=== PATIENT | male | born 1940 | race Caucasian/White ===

== ENCOUNTER 2019-10-02 22:07 | Inpatient (IN) | payer OTHER ==
[~2019-10-02] VITALS: Ht 162.6 cm; Wt 198.9 kg
[2019-10-02 23:15] LABS: Basophils # (auto) 0 10 ^3/uL (0-0.2); Basophils % (auto) 0.3 % (0.0-2.0); Eosinophils # (auto) 0 10 ^3/uL (0-0.8); White Blood Cell 9.5 10^3/uL (4.4-10.8)
[2019-10-02 23:18] LABS: Hemoglobin 16.5 g/dL (13.5-17.5); Lymphocytes # (auto) 0.5 10 ^3/uL (0.4-5.4); Lymphocytes % (auto) 5.5 % (10.0-50.0); Mean Corpuscular Hemoglobin 26.4 pg (28.0-32.0); Mean Corpuscular Hgb Conc. 31.1 g/dL (32.0-36.0); Mean Corpuscular Volume 84.9 fL (80.0-100.0); Monocytes % (auto) 10.6 % (0.0-12.0); Neutrophils % (auto) 83.6 % (37.0-80.0); Nucleated Red Blood Cells % 0.3 %; Platelet Count (auto) 238 10^3/uL (140-450); Red Blood Cells 6.25 10^6/uL (4.5-5.90); Red Cell Distribution Width 18.2 % (11.8-14.3)
[2019-10-02 23:38] LABS: Calcium 8.5 mg/dL (8.5-10.1); Magnesium 2.6 mg/dL (1.6-2.6)
[2019-10-02 23:42] LABS: Lactic Acid w/Reflex 4.9 mmol/L (0.4-2.0)
[2019-10-02] MEDS ORDERED: SODIUM BICARBONATE 8.4 % INJ 50ML VIAL IV ONE (23:45)
[2019-10-02] MEDS ORDERED: DEXTROSE (50%) 50ML SYRG IV ONE (23:45)
[2019-10-02] MEDS ORDERED: levoFLOXacin 750MG 150 ML IV ONE (23:45)
[2019-10-02] MEDS ORDERED: cefTRIAXone 1GM/50ML D5W 50 ML IV ONE (23:45)
[2019-10-02] MEDS ORDERED: InsuLIN REG 1unit/0.01ml Soln (100units/ml) IV ONE (23:45)
[2019-10-02 23:46] LABS: Bilirubin, Total 1.9 mg/dL (0.2-1.0); CRP High Sensitivity 3.98 mg/dL (< 0.3); Potassium 7.1 mmol/L (3.5-5.1)
[2019-10-02 23:47] LABS: BUN/Creatinine Ratio 32.7
[2019-10-03] MEDS ORDERED: FUROSEMIDE 20 MG/2 ML VIAL IV ONE ×2 (00:15→02:30)
[2019-10-03] MEDS ORDERED: MORPHINE SULFATE 4 MG/ML SYR/VIAL IV ONE (02:45)
[2019-10-03] MEDS ORDERED: ONDANSETRON HCL 4 MG/2 ML VIAL IV ONE (02:45)
[2019-10-03 02:46] LABS: Urine Bacteria MANY /hpf (None Seen); Urine Blood 1+ /uL (Negative); Urine Hyaline Cast MANY /lpf (0 - 2); Urine Mucus FEW (None Seen); Urine Specific Gravity 1.019 (1.001-1.035); Urine WBC 19 /hpf (0 - 3); Urine WBC Clumps PRESENT /hpf (None Seen)
[2019-10-03] MEDS ORDERED: MORPHINE SULFATE 4 MG/ML SYR/VIAL IV PRN (04:45)
[2019-10-03] MEDS ORDERED: ACETAMINOPHEN 325 MG TAB PO PRN (04:45)
[2019-10-03] MEDS ORDERED: NITROGLYCERIN 0.4 MG SL TAB SL PRN (04:45)
[2019-10-03] MEDS ORDERED: ACETAMINOPHEN 500 MG TAB PO PRN (04:45)
[2019-10-03] MEDS ORDERED: SODIUM ZIRCONIUM CYCL 10 GM PAK PO ONE ×3 (04:45→21:00)
[2019-10-03] MEDS ORDERED: ALBUTEROL SULF HFA 90MCG INH 200DOSE IN SCH (06:00)
[2019-10-03 06:35] VITALS: BP 131/70
--- NOTE | 2019-10-03 06:35 | NUR ---
Telemetry admit from ER LELAJAKI admitted to Telemetry unit. Patient oriented to BRODY ERVIN, primary RN, unit, room, bed, and unit policies regarding patient care and visiting hours. Patient now on continuous telemetry monitoring, tele box # 13 and telemetry reading on arrival to unit is sinus rhythm. Patient is alert and oriented x3, patient reoriented to time. Patient denies pain at this time. Patient is on 6L Oxymizer with oxygen saturation at 91%, no sign/symptoms of distress noted at this time. Instructed on plan of care and to call for assistance as needed, patient verbalized understanding. Bed is locked in lowest position, side rails x 2 are up, call light is within reach, and bed alarm is on. All questions and concerns addressed, patient verbalized understanding.
--- NOTE | 2019-10-03 07:00 | NUR ---
Wound Pictures Wound pictures taken for reference.
--- NOTE | 2019-10-03 07:00 | NUR ---
Home Medication Unable to complete accurate home medication reconciliation due to patient not remembering all of the home medications he takes at home. Patient states he lives at home with his daughter Luz but does not remember her phone number at this time.
[2019-10-03] MEDS ORDERED: OPTISON 3ml Vial for INJ IV ONE (07:22)
[2019-10-03] MEDS: SODIUM CHLORIDE 0.9% 1,000 ML IV SCH (08:00)
[2019-10-03] MEDS ORDERED: FURO1TAB33 PO (08:33)
[2019-10-03] MEDS ORDERED: METF-370 PO (08:33)
[2019-10-03 09:00] VITALS: BP 139/90
[2019-10-03] MEDS ORDERED: LISINOPRIL 10 MG TAB PO SCH (10:00)
[2019-10-03] MEDS ORDERED: ENOXAPARIN SOD 40 MG/0.4 ML SYRINGE SC SCH (10:00)
[2019-10-03] MEDS: DOXYCYCLINE 100MG/250ML 250 ML IV SCH ×2 (10:00→23:38)
[2019-10-03] MEDS ORDERED: ENOXAPARIN SOD 60 MG/0.6 ML SYRINGE SC SCH (10:00)
[2019-10-03] MEDS ORDERED: CLOPIDOGREL BISULFATE 75 MG TAB PO SCH (10:00)
[2019-10-03] MEDS ORDERED: FUROSEMIDE 100 MG/10ML VIAL IV SCH ×2 (10:00→11:15)
[2019-10-03] MEDS: cefTRIAXone 1GM/50ML D5W 50 ML IV SCH (10:47)
[2019-10-03] MEDS: CLOPIDOGREL BISULFATE 75 MG TAB PO SCH (10:48)
[2019-10-03] MEDS: ZINC SULFATE 220mg CAP or TAB PO SCH (10:49)
[2019-10-03] MEDS: DOCUSATE SOD 100 MG CAP PO SCH (10:49)
[2019-10-03] MEDS: ASCORBIC ACID 1,000 MG TAB PO SCH (10:50)
[2019-10-03] MEDS: CHOLECALCIFEROL (VITD3) 1,000UNIT=25mCg TAB PO SCH (10:50)
[2019-10-03] MEDS: ASPirin 81 mg TAB PO SCH (10:51)
[2019-10-03] MEDS: ENOXAPARIN SOD 40 MG/0.4 ML SYRINGE SC SCH (10:53)
[2019-10-03] MEDS: CARVEDILOL 3.125 MG TAB PO SCH ×2 (10:58→22:00)
[2019-10-03] MEDS ORDERED: DEXTROSE (50%) 50ML SYRG IV ONE ×3 (11:15→21:00)
[2019-10-03] MEDS ORDERED: INSULIN LISPRO (HUMAN) 100 UNITS/ML ML SC ONE (11:15)
--- NOTE | 2019-10-03 11:38 | NUR ---
SPOKE WITH DOCTOR PARISH INFORMED THAT PATIENT HAD JUST RECEIVED LASIX AND COREG AND BLOOD PRESSURE IS 115/94 ASK MD DOES HE STILL WANT ME TO GIVE 60 MG OF LASIX PER MD OKAY TO HOLD GIVE DEXTROSE AND INSULIN ORDERED (SEE EMAR )
[2019-10-03 13:00] VITALS: BP 103/67
[2019-10-03] MEDS ORDERED: HYDR10TA26 PO (13:08)
[2019-10-03] MEDS ORDERED: LOSA-69 PO (13:10)
[2019-10-03] MEDS ORDERED: HYDR-4833 PO (13:10)
[2019-10-03] MEDS ORDERED: ASPI-543 PO (13:11)
[2019-10-03] MEDS ORDERED: ATO40T PO (13:11)
[2019-10-03 14:54] LABS: Calcium 8.1 mg/dL (8.5-10.1)
[2019-10-03 14:55] LABS: Magnesium 2.4 mg/dL (1.6-2.6); Phosphorus 5.8 mg/dL (2.5-4.90)
[2019-10-03 14:58] LABS: Potassium 6.7 mmol/L (3.5-5.1)
--- NOTE | 2019-10-03 15:00 | NUR ---
PAGED MD LUGO FOR HIGH POTASSIUM. AWAITING CALL BACK
[2019-10-03] MEDS ORDERED: MORPHINE SULF INJ 2 MG/ML SYRINGE 1ML IV PRN (15:15)
[2019-10-03] MEDS ORDERED: ALBUTEROL SULF 2.5 MG/0.5ML(0.5%) NEB SOLN NEB ONE ×2 (15:30→21:00)
--- NOTE | 2019-10-03 15:36 | NUR ---
I faxed transfer order to [place].
[2019-10-03] MEDS ORDERED: INS7030I SC (15:54)
--- NOTE | 2019-10-03 16:00 | NUR ---
MD LUGO AT BEDSIDE UPDATED MD ON PATIENT'S STATUS INCLUDING CRITICAL POTASSIUM LEVEL, MD IS AWARE. MD ORDERED PATIENT TO BE TRANSFERRED TO [place]. INFORMED SYSTEM SUPPORT TECHNICIAN MERI AND SHE WILL CALL ME BACK WITH AN UPDATE.
--- NOTE | 2019-10-03 16:19 | NUR ---
ETHEL LUDWIG MD FOR DECREASED BLOOD PRESSURE OF 84/46 mmHg UNABLE TO GIVE LASIX. AWAITING CALL BACK
--- NOTE | 2019-10-03 16:44 | NUR ---
SPOKE WITH DR. ATKINS UPDATED MD ON PATIENT'S STATUS INCLUDING CRITICAL POTASSIUM, BLOOD PRESSURE, URINE OUTPUT, BUN AND CREATININE LEVELS. MD ORDERED INSULIN, DEXTROSE, SODIUM BICARB, LASIX, 2 GRAM POTASSIUM RESTRICTION, AND BMP DRAW IN 3 HOURS, WILL FOLLOW THROUGH WITH ORDERS.
[2019-10-03 16:54] VITALS: BP 113/46
[2019-10-03] MEDS ORDERED: SODIUM BICARBONATE 8.4 % INJ 50ML VIAL IV ONE ×2 (17:00→21:00)
[2019-10-03] MEDS ORDERED: FUROSEMIDE 40 MG/4 ML VIAL IV ONE (17:00)
[2019-10-03] MEDS ORDERED: InsuLIN REG 1unit/0.01ml Soln (100units/ml) IV ONE ×2 (17:00→21:00)
--- NOTE | 2019-10-03 17:15 | NUR ---
WOUND CARE NOTE: WOUND CARE IN TO SEE PATIENT PER WOUND CARE REQUEST. PATIENT ADMITTED TO [facility] FOR NSTEMI. BEDSIDE NURSE NOTED SKIN INTEGRITY ISSUES UPON ADMISSION. PHOTOGRAPHS TAKEN AT THAT TIME FOR REFERENCE. PATIENT'S [place] SCORE IS 10. PATIENT IS NOTED TO HAVE A LEFT UPPER ARM SKIN TEAR. STASIS ULCER TO LEFT POSTERIOR CALF. STASIS ULCERS TO LEFT ANTERIOR FREGOSO. MASD WITH SKIN EROSION TO THE SCROTUM. A PRESSURE ULCER TO THE SACRUM. INTERTRIGINOUS RASH TO LEFT THIGH FOLD. PATIENT DID NOT ALLOW THIS RN TO COMPLETE ASSESSMENT OF ALL WOUNDS. PATIENT WAS BELLIGERENT DURING ASSESSMENT. LEFT UPPER ARM SKIN TEAR CLEANSED WITH NORMAL SALINE, PATTED DRY WITH STERILE GAUZE, LEFT OPEN TO AIR. STASIS ULCER TO LEFT POSTERIOR CALF CLEANSED WITH NORMAL SALINE, PATTED DRY WITH STERILE GAUZE, COVERED WITH OPTIFOAM GENTLE DRESSING. STASIS ULCERS TO LEFT FREGOSO CLEANSED WITH NORMAL SALINE, PATTED DRY WITH STERILE GAUZE, LEFT OPEN TO AIR. ANTIFUNGAL BARRIER OINTMENT APPLIED TO AFFECTED SCROTAL AREAS. UNABLE TO ASSESS SACRUM. ANTIFUNGAL BARRIER OINTMENT APPLIED TO LEFT INNER THIGH FOLDS. ORDERED SPECIALTY BED. RECOMMEND: SPECIALTY AIR BED. PATIENT TO BE TRANSFERRED UPON DELIVERY BY [facility]. FREQUENT Q2HOUR/PRN REPOSITIONING SIDE-TO SIDE ONLY, NO SUPINE, CONDITIONS ALLOW. REDISTRIBUTE PRESSURE UTILIZING PILLOWS AND WEDGES. BID/PRN MOISTURE BARRIER CREAM TO SACRUM COVERED WITH OPTIFOAM GENTLE SACRAL DRESSING. BID/PRN APPLICATION OF ANTIFUNGAL BARRIER OINTMENT TO AFFECTED AREAS OF GROIN/SCROTUM/THIGH FOLD AREAS. BID/PRN DRESSING CHANGE TO LEFT POSTERIOR CALF. SKIN/WOUND CARE PLAN. DIETARY CONSULT. CONTINUED MONITORING BY WOUND CARE TEAM. Addendum: 10/03/19 at 1838 by LINO THOMAS RN RN Amended: Links added.
[2019-10-03] MEDS: FUROSEMIDE 100 MG/10ML VIAL IV SCH (18:00)
--- NOTE | 2019-10-03 18:05 | NUR ---
Respiratory note: CALLED TO BEDSIDE BY RNS. SPO2 MONITOR READING SATS IN THE 50-60'S. PT ON BIPAP, BIPAP NOT FULLY ON, ON "TEST SCREEN". TWO RNS AT BEDSIDE. STATE PT WAS TAKEN OFF FOR 10 MIN AND PUT ON NRB, RN TURNED MACHINE OFF WITH BUTTON ON THE BACK. THEN RN TURNED MACHINE BACK ON, AND PLACED BACK ON PT. STATE PT WAS BLUE AND THEY CALLED RT. BIPAP NOW FULLY ON, SATS INCREASING GRADUALLY. DID NOT COME UP HIGHER THAN 84-85%. FIO2 INCREASED TO 60% THEN 70%, SATS NOW AT 95%. PT APPEARS TO BE IN NO DISTRESS, ABLE TO ANSWER QUESTIONS APPROPRIATELY. WILL CONTINUE WITH CARE.
[2019-10-03] MEDS: ATORVASTATIN 20 MG TAB PO SCH (18:28)
--- NOTE | 2019-10-03 18:45 | NUR ---
SPOKE WITH MD ATKINS INFORMED MD DEE WAS HELD DUE TO LOW BP. IS AWARE AND ORDERED DOPAMINE TO BE GIVEN AND TO DRAW POTASSIUM IN 20 MINS. INFORMED PASSENGER SCREENER.
[2019-10-03] MEDS: ALBUTEROL SULF 2.5 MG/0.5ML(0.5%) NEB SOLN NEB SCH (18:49)
[2019-10-03] MEDS: IPRATROPIUM BROM 0.5 MG/2.5ML INH SOL NEB SCH (18:49)
--- NOTE | 2019-10-03 19:05 | NUR ---
Opening Shift Note Assumed care of patient, awake, alert and oriented x4, patient on bipap with even and unlabored respirations, no S/S of distress/SOB or pain. Bed in lowest locked position, side rails up x2, and call light within reach. Instructed on POC and to call for assist PRN, will continue to monitor for changes Q1hr and PRN.
[2019-10-03] MEDS ORDERED: DOPamine 1600MCG/ML D5W 250 ML IV SCH (19:15)
--- NOTE | 2019-10-03 19:17 | NUR ---
CLOSING SHIFT NOTE ENDORSED CARE TO FAMILY INTERVENTION SPECIALIST RN JOANN. PATIENT HAS NO S/S OF DISTRESS/SOB OR PAIN AT THIS TIME.
[2019-10-03 20:12] LABS: Calcium 8.1 mg/dL (8.5-10.1)
[2019-10-03 20:28] LABS: Potassium 6.3 mmol/L (3.5-5.1)
[2019-10-03] MEDS ORDERED: CALCIUM GLUC 4.65meq/50ml D5AE 50 ML IV ONE ×2 (21:00)
[2019-10-03] MEDS ORDERED: ALBUTEROL SULF 2.5 MG/0.5ML(0.5%) NEB SOLN ONE (21:05)
[2019-10-03] MEDS ORDERED: ATORVASTATIN 20 MG TAB PO SCH (22:00)
--- NOTE | 2019-10-03 22:45 | NUR ---
IV removal and IV insert IV to left upper chest DC'd with sterile technique, catheter fully intact. Pressure dressing applied to site. Patient tolerated procedure well. IV access obtained to left upper chest and left hand, via clean sterile technique by inserting 22 gauge catheter at after 1 attempt(s). IV secured properly. No trauma to site. Patient tolerated procedure well.
[2019-10-03 23:07] VITALS: BP 74/25
--- NOTE | 2019-10-03 23:07 | NUR ---
PATIENT UPGRADE TO ICU PATIENT SYSTOLIC BLOOD PRESSURE RUNNING IN THE 70'S, NOTIFIED MD LI AND HISTOLOGY AIDE. ORDERS HAVE BEEN GIVEN TO UPGRADE PATIENT TO ICU, WILL CARRY OUT ORDERS.
--- NOTE | 2019-10-03 23:11 | NUR ---
DOPAMINE: Pt now ICU status as current BP 74/25. Pt's SBP consistently running in 70s. Dopamine gtt now able to be titrated as pt ICU status and order received to titrate Dopamine for BP support. Dopamine gtt increased from 2.5ug/kg/min to 7ug/kg/min. To continue to monitor pt. Awaiting ICU bed availability/assignment.
--- NOTE | 2019-10-03 23:40 | NUR ---
UPDATED HARRISON NOTIFIED HARRISON OF PATIENT BEING UPGRADED TO ICU ROOM 112.
[2019-10-04] VITALS (90 sets, daily range): BP systolic 93–137; BP diastolic 34–70
--- NOTE | 2019-10-04 00:45 | NUR ---
PT RECEIVED IN ICU RECEIVED PT FROM TELEMETRY FLOOR. REPORT GIVEN BY JULEE DAVID. PT CURRENTLY ON BIPAP. NO SIGNS OF RESPIRATORY DISTRESS NOTED, JUST SHORT OF BREATH WITH EXERTION. VITAL SIGNS FOLLOWS: TEMP 98.1, P: 95, RR: 15, BP 102/38 MMHG. PT CURRENTLY ON 7 MCG OF DOPAMINE AND ANTIBIOTIC INFUSING. ON SPECIALTY MATTRESS WITH EXCESSIVE SKIN BREAKDOWN NOTED AND PICTURES HAVE BEEN TAKEN IN CHART. PT CONNECTED TO JUDO INSTRUCTOR. WILL CONTINUE TO MONITOR AND ASSESS PT.
--- NOTE | 2019-10-04 01:00 | NUR ---
PT ASSESSMENT NEURO- PT IS AOX4. PUPILS 3MM AND BRISK/REACTIVE TO LIGHT. ABLE TO LIFT BUE. CARDIAC- DOPAMINE RUNNING AT 7 MCG. HR 90'S-100'S. BP STABLE WITH SYSTOLIC RUNNING IN LOW 100'S. RADIAL PULSES PALPABLE AND REGULAR. PEDAL PULSES WEAK, REGULAR WHEN PALPATED. 4+ PITTING EDEMA NOTED TO BLE. RESPIRATORY- PT IS CLEAR TO AUSCULTATION WITH BIPAP MACHINE IN PLACE. RATE IS STABLE AT 15 BPM. NO RESPIRATORY DISTRESS NOTED AT THIS TIME. PREVIOUS ABG SHOWS DECREASED PH AND ELEVATED CO2. GI/- LAST BM PER PT CHART WAS 09/30. WHAET CATHETER IN PLACE DRAINING TEA COLORED URINE WITH EXCESSIVE SEDIMENT. NO BLADDER DISTENTION FELT. BOWEL SOUNDS ARE HYPOACTIVE. ABDOMEN IS LARGE, ROUND, AND FIRM. SKIN- PT HAS SKIN BREAKDOWN IN MULTIPLE AREAS- PRESSURE III INJURY TO SACRUM, DEVIN SKIN TEAR, L POSTERIOR CALF STASIS ULCER, L ANTERIOR FREGOSO STASIS ULCERS, MASD NOTED ON SACRUM, GROIN, INNER THIGH AND ABDOMINAL FOLDS. PT IS ON BARIATRIC BED WITH OPTIFOAMS APPLIED TO ALL AREAS OF CONCERN. SKIN IS NORMAL IN COLOR, EXCEPT DARKENED- HYPERPIGMENTATION TO BLE. ELEVATED BLE. BLE WEEPING SEROUS DRAINAGE AT THIS TIME. IVS- RFA 20 G PLACED 10/01, LFA 22G PLACED 10/02, LEFT UPPER CHEST 20 G 10/02.
--- NOTE | 2019-10-04 01:33 | NUR ---
PT CARE DID FULL PRISCILLA AND GOWN CHANGE. GAVE PT CHG BATH. SKIN ASSESSED WITH NO NEW CHANGES NOTED. SOILED OPTIFOAM REPLACED ON LEFT LOWER LEG. PT HAD COMPRESSION SOCK ON, BUT IT HAD TO BE CUT OFF DUE TO BEING SO TIGHT AND PT HAVING 4+ PITTING EDEMA IN LOWER EXTREMITIES. LOWER LIMBS ARE CURRENTLY ELEVATED ON PILLOWS FOR VENOUS RETURN AND THEY ARE WEEPING SEROUS FLUID. EDUCATED PT ON USE OF CALL LIGHT, UNIT ORIENTATION, AND PLAN OF CARE.
[2019-10-04] MEDS: DOPamine 1600MCG/ML D5W 250 ML IV SCH ×4 (03:31→17:42)
[2019-10-04 04:19] LABS: Basophils # (auto) 0 10 ^3/uL (0-0.2); Basophils % (auto) 0.4 % (0.0-2.0); Eosinophils # (auto) 0.1 10 ^3/uL (0-0.8); Hematocrit 52.6 % (41.0-53.0); Hemoglobin 16.5 g/dL (13.5-17.5); Lymphocytes # (auto) 0.5 10 ^3/uL (0.4-5.4); Lymphocytes % (auto) 4.3 % (10.0-50.0); Mean Corpuscular Hgb Conc. 31.4 g/dL (32.0-36.0); Mean Corpuscular Volume 82.7 fL (80.0-100.0); Monocytes % (auto) 8.6 % (0.0-12.0); Neutrophils # (auto) 10.3 10 ^3/uL (1.6-8.6); Neutrophils % (auto) 85.7 % (37.0-80.0); Nucleated Red Blood Cells % 0.1 %; Platelet Count (auto) 216 10^3/uL (140-450); Red Blood Cells 6.36 10^6/uL (4.5-5.90); Red Cell Distribution Width 18.2 % (11.8-14.3)
[2019-10-04 04:37] LABS: Albumin 2.8 g/dL (3.4-5.0); Calcium 8.1 mg/dL (8.5-10.1); Magnesium 2.5 mg/dL (1.6-2.6)
[2019-10-04] MEDS: SODIUM CHLORIDE 0.9% 1,000 ML IV SCH (04:38)
[2019-10-04 04:45] LABS: BUN/Creatinine Ratio 35.5; Total Protein 6.8 g/dL (6.4-8.2)
[2019-10-04 05:02] LABS: Potassium 6.1 mmol/L (3.5-5.1)
--- NOTE | 2019-10-04 05:15 | NUR ---
PAGED HOSPITALIST FOR CRITICAL POTASSIUM OF 6.1. AWAITING CALL BACK.
--- NOTE | 2019-10-04 05:23 | NUR ---
CALL BACK NEW ORDERS RECEIVED FOR POTASSIUM OF 6.1. SEE e-MAR.
[2019-10-04] MEDS ORDERED: DEXTROSE (50%) 50ML SYRG IV ONE (05:30)
[2019-10-04] MEDS ORDERED: FUROSEMIDE 20 MG/2 ML VIAL IV ONE (05:30)
[2019-10-04] MEDS ORDERED: SODIUM ZIRCONIUM CYCL 10 GM PAK PO ONE ×2 (05:30→11:00)
[2019-10-04] MEDS ORDERED: InsuLIN REG 1unit/0.01ml Soln (100units/ml) IV ONE (05:30)
[2019-10-04] MEDS: IPRATROPIUM BROM 0.5 MG/2.5ML INH SOL NEB SCH ×3 (05:46→18:38)
[2019-10-04] MEDS: ALBUTEROL SULF 2.5 MG/0.5ML(0.5%) NEB SOLN NEB SCH ×3 (05:46→18:38)
--- NOTE | 2019-10-04 06:17 | NUR ---
IC DISCONTINUED D/C'D RFA 22G IV. IV WAS LEAKING AND NOT FLUSHING APPROPRIATELY. CATHETER IN TACT. SITE WRAPPED WITH PRESSURE DRESSING. Addendum: 10/04/19 at 0618 by MURALI ALLISON RN RN IV DISCONTINUED
[2019-10-04] MEDS: FUROSEMIDE 100 MG/10ML VIAL IV SCH ×2 (06:50→18:01)
--- NOTE | 2019-10-04 09:31 | NUR ---
UPDATED BOBBY FROM [facility].
[2019-10-04] MEDS: cefTRIAXone 1GM/50ML D5W 50 ML IV SCH (09:35)
--- NOTE | 2019-10-04 09:39 | NUR ---
ECHO BEING DONE AT THIS TIME. SEE REPORT.
[2019-10-04] MEDS: CARVEDILOL 3.125 MG TAB PO SCH ×2 (10:00→22:00)
[2019-10-04] MEDS: DOXYCYCLINE 100MG/250ML 250 ML IV SCH ×2 (10:00→21:55)
[2019-10-04] MEDS: CLOPIDOGREL BISULFATE 75 MG TAB PO SCH (10:00)
[2019-10-04] MEDS: DOCUSATE SOD 100 MG CAP PO SCH (10:00)
[2019-10-04] MEDS: ZINC SULFATE 220mg CAP or TAB PO SCH (10:00)
[2019-10-04] MEDS: CHOLECALCIFEROL (VITD3) 1,000UNIT=25mCg TAB PO SCH (10:00)
[2019-10-04] MEDS: ASPirin 81 mg TAB PO SCH (10:00)
[2019-10-04] MEDS: ASCORBIC ACID 1,000 MG TAB PO SCH (10:00)
[2019-10-04] MEDS: ENOXAPARIN SOD 40 MG/0.4 ML SYRINGE SC SCH (10:00)
[2019-10-04] MEDS ORDERED: OPTISON 3ml Vial for INJ IV ONE (10:17)
[2019-10-04] MEDS ORDERED: ALBUMIN 25% 100 ML IV ONE (11:15)
[2019-10-04 11:20] LABS: BUN/Creatinine Ratio 38.3; Calcium 8.4 mg/dL (8.5-10.1); Potassium 5.5 mmol/L (3.5-5.1)
--- NOTE | 2019-10-04 11:59 | NUR ---
Nutrition Assessment Notes Please refer to link for full assessment notes. Est Energy needs: [id number] kcals (11-14 kcal/kgBW) Est Protein needs: 157-176 gms/day (2.0-2.5 gm/kgIBW) Will continue to monitor and reassess prn. Addendum: 10/04/19 at [address] Amended: Links added.
[2019-10-04] MEDS ORDERED: DEXTROSE (50%) 50ML SYRG IV PRN (12:45)
--- NOTE | 2019-10-04 15:22 | NUR ---
1520 10/04/19 I faxed transfer order and Notice Regarding Post Stabilization to [place]-document scanned into [employer]. I faxed today's cardiac consultation, labs, vitals and medication list to [place].
[2019-10-04 15:59] LABS: Calcium 8.3 mg/dL (8.5-10.1); Potassium 5.5 mmol/L (3.5-5.1)
[2019-10-04] MEDS: ACCU-CHEK COMFORT CURVE STRIP VI SCH ×2 (16:51→23:40)
--- NOTE | 2019-10-04 17:43 | NUR ---
1730 10/04/19 I called [facility] and spoke with senior gis analyst Scot, he said they did receive transfer order and today's clinical information but they are not accepting any ICU or [facility] transfers at this time to [place] or [place] due to over saturation. Inpatient authorization is extended until 10/05/19 1000.
[2019-10-04] MEDS: InsuLIN REG 1unit/0.01ml Soln (100units/ml) SC SCH ×2 (17:44→23:41)
[2019-10-04] MEDS: ATORVASTATIN 20 MG TAB PO SCH (18:01)
--- NOTE | 2019-10-04 20:15 | NUR ---
NUTRITION/ BIPAP ATTEMPTED TO FEED PT APPLESAUCE/JELLO AND GIVE A FEW DRINKS OF WATER. HE IS UNABLE TO EAT HIS DINNER DUE TO BEING ON BIPAP AND PREVIOUSLY DESATURATING INTO THE 70'S. CURRENTLY OFF BIPAP AND ON 10L OXYMIZER BY RT SOMMERS AT BEDSIDE. FED APPLESAUCE AND A FEW DRINKS OF WATER. PT TOLERATED WELL WITH SATS IN THE 90'S AND NO S/S OF RESPIRATORY DISTRESS NOTED AT THIS TIME. WILL CONTINUE TO ATTEMPT TO FEED PT WHEN OFF BIPAP.
--- NOTE | 2019-10-04 20:16 | NUR ---
PT TAKEN OFF BIPAP AT THIS TIME AND PLACED ON 10 LPM VIA OXYMIZER. PT IS TOLERATING WELL. PT TOLD HE WILL BE PLACED BACK ON BIPAP FOR HOURS OF SLEEP OR BECOMES DISTRESSED. HR 100 POX 93% RR 16. WILL CONTINUE TO MONITOR.
[2019-10-04] MEDS: ENOXAPARIN SOD 150 MG/1 ML SYRINGE SC SCH (21:55)
--- NOTE | 2019-10-04 22:55 | NUR ---
IV INSERTION/REMOVAL D/C'D LEFT FA 20G- IV WAS LEAKING, BLEEDING, AND WASNT ABLE TO BE FLUSHED. CATHETER IN TACT UPON REMOVAL. CHARGE NURSE, JOSE M, INSERTED LEFT WRIST 22 G. IV FLUSHES AND IS BEING KEPT OPEN WITH 10 ML/HR NS. WILL CONTINUE TO MONITOR FOR S/S OF INFILTRATION.
--- NOTE | 2019-10-04 22:56 | NUR ---
ORAL INTAKE PT STILL ON 10L OXYMIZER. PT ABLE TO EAT JELLO AND CRACKERS INDEPENDENTLY. HOB ELEVATED TO PREVENT ASPIRATION.
[2019-10-05] VITALS (50 sets, daily range): BP systolic 91–131; BP diastolic 46–76
--- NOTE | 2019-10-05 00:21 | NUR ---
PT CARE GAVE PT CHG BATH, GOWN CHANGE, FULL PRISCILLA CHANGE. BLE ARE OFFLOADED AND ELEVATED WITH PILLOWS. PT TOLERATED TURNING WELL WITH SATS MAINTAINING IN 90'S ON 10L OXYMIZER.
[2019-10-05 03:44] LABS: Basophils # (auto) 0.1 10 ^3/uL (0-0.2); Eosinophils # (auto) 0.1 10 ^3/uL (0-0.8); Eosinophils % (auto) 1.3 % (0.0-7.0); Lymphocytes # (auto) 0.5 10 ^3/uL (0.4-5.4); Monocytes # (auto) 0.9 10 ^3/uL (0-1.3); White Blood Cell 9.2 10^3/uL (4.4-10.8)
[2019-10-05 03:46] LABS: Basophils % (auto) 0.8 % (0.0-2.0); Hematocrit 49.5 % (41.0-53.0); Hemoglobin 15.7 g/dL (13.5-17.5); Lymphocytes % (auto) 5.7 % (10.0-50.0); Mean Corpuscular Hgb Conc. 31.7 g/dL (32.0-36.0); Mean Corpuscular Volume 82.1 fL (80.0-100.0); Monocytes % (auto) 10.1 % (0.0-12.0); Neutrophils # (auto) 7.6 10 ^3/uL (1.6-8.6); Neutrophils % (auto) 82.1 % (37.0-80.0); Nucleated Red Blood Cells % 0.2 %; Platelet Count (auto) 163 10^3/uL (140-450); Red Blood Cells 6.03 10^6/uL (4.5-5.90); Red Cell Distribution Width 17.5 % (11.8-14.3)
[2019-10-05 04:02] LABS: Albumin 2.6 g/dL (3.4-5.0); BUN/Creatinine Ratio 37.6; Magnesium 2.1 mg/dL (1.6-2.6); Potassium 4.6 mmol/L (3.5-5.1)
[2019-10-05 04:05] LABS: Total Protein 6.1 g/dL (6.4-8.2)
[2019-10-05] MEDS: ONDANSETRON HCL 4 MG/2 ML VIAL IV PRN ×3 (04:25→14:23)
[2019-10-05] MEDS: DOPamine 1600MCG/ML D5W 250 ML IV SCH ×2 (04:26→11:42)
--- NOTE | 2019-10-05 04:26 | NUR ---
PT EXPERIENCING NAUSEA WITH AN EPISODE OF VOMITING. EMESIS WAS GREEN IN COLOR AND SMALL TO MODERATE IN SIZE. NO BLOOD OBSERVED AT THIS TIME. ZOFRAN GIVEN PER MD ORDERS.
[2019-10-05] MEDS: SODIUM CHLORIDE 0.9% 1,000 ML IV SCH (04:38)
--- NOTE | 2019-10-05 04:56 | NUR ---
PT HAD ANOTHER EPISODE OF VOMITING. EMESIS IS DARK GREEN/BROWN, THIN IN COLOR. PT WAS MEDICATED WITH ZOFRAN. WILL CONTINUE TO MONITOR AND ASSESS PT.
--- NOTE | 2019-10-05 06:13 | NUR ---
HOSPITALIST PAGED FOR PERSISTENT VOMITING. AWAITING CALLBACK.
[2019-10-05] MEDS: ACCU-CHEK COMFORT CURVE STRIP VI SCH ×3 (06:18→18:02)
[2019-10-05] MEDS: FUROSEMIDE 100 MG/10ML VIAL IV SCH ×2 (06:18→18:06)
[2019-10-05] MEDS: InsuLIN REG 1unit/0.01ml Soln (100units/ml) SC SCH ×3 (06:31→18:04)
--- NOTE | 2019-10-05 06:40 | NUR ---
HOSPITALIST RETURN CALL ONI RETURNED CALL. MADE HIM AWARE OF PT EXCESSIVE VOMITING X2 HOURS, DARK BROWN, THIN EMESIS. NEW ORDERS RECEIVED, SEE CHART.
[2019-10-05] MEDS ORDERED: PROMETHAZINE HCL 25 MG/ML 1ML IV ONE (06:45)
[2019-10-05] MEDS: ALBUTEROL SULF 2.5 MG/0.5ML(0.5%) NEB SOLN NEB SCH ×4 (06:56→17:53)
[2019-10-05] MEDS: IPRATROPIUM BROM 0.5 MG/2.5ML INH SOL NEB SCH ×4 (06:56→17:53)
--- NOTE | 2019-10-05 06:56 | NUR ---
RT NOTE: PT REFUSED TX AT THIS TIME. PT STATES HE IS FEELING NAUSEOUS. ZOFRAN HAS ALREADY BEEN GIVEN. PT STATES HE IS NOT FEELING ANY SOB. LUNG SOUNDS RHONCHI T/O. ON 15L OXYMIZER SPO2 93 HR 100 RR 15. BP 10/62. BIPAP IS BEDSIDE. PT AWARE TO PAGE FOR RESPIRATORY IF SOB STARTS OTHERWISE I WOULD RETURN FOR NEXT SCHEDULED TX. WILL CONTINUE TO MONITOR.
--- NOTE | 2019-10-05 07:18 | NUR ---
REPORT RECEIVED FROM PHYSICIST SOLID EARTH RN
--- NOTE | 2019-10-05 08:01 | NUR ---
SKIN INTEGRITY PATIENT REFUSING SKIN ASSESSMENT ON SACRUM AT THIS TIME. EDUCATED ON PRESSURE ULCERS AND SKIN INTEGRITY, STATES "MAYBE LATER".
--- NOTE | 2019-10-05 08:35 | NUR ---
PATIENT VOMITED ZOFRAN GIVEN PER ORDER
[2019-10-05] MEDS: cefTRIAXone 1GM/50ML D5W 50 ML IV SCH (08:39)
--- NOTE | 2019-10-05 09:02 | NUR ---
MERI MENHADEN VESSEL PILOT PAGED AWAITING CALLBACK
--- NOTE | 2019-10-05 09:03 | NUR ---
DR. LUGO PAGED AWAITING CALLBACK
--- NOTE | 2019-10-05 09:18 | NUR ---
0915 10/05/19 I faxed transfer order and Notice Regarding Post Stabilization to [place]-document scanned into [employer]. I faxed today's labs, vital and medication list to [place].
[2019-10-05] MEDS: ENOXAPARIN SOD 150 MG/1 ML SYRINGE SC SCH (09:40)
[2019-10-05] MEDS: DOXYCYCLINE 100MG/250ML 250 ML IV SCH (09:40)
[2019-10-05] MEDS: ASPirin 81 mg TAB PO SCH (09:43)
[2019-10-05] MEDS: CARVEDILOL 3.125 MG TAB PO SCH (09:44)
[2019-10-05] MEDS: CLOPIDOGREL BISULFATE 75 MG TAB PO SCH (09:44)
[2019-10-05] MEDS: ZINC SULFATE 220mg CAP or TAB PO SCH (09:44)
[2019-10-05] MEDS: DOCUSATE SOD 100 MG CAP PO SCH (09:44)
[2019-10-05] MEDS: CHOLECALCIFEROL (VITD3) 1,000UNIT=25mCg TAB PO SCH (09:44)
[2019-10-05] MEDS: ASCORBIC ACID 1,000 MG TAB PO SCH (09:44)
--- NOTE | 2019-10-05 09:46 | NUR ---
PO MEDS PATIENT UNABLE TO SWALLOW PO MEDS AT THIS TIME PATIENT CONTINUES TO HAVE NAUSEA AND VOMITING. IV AND SQ MEDS GIVEN ORDERED
--- NOTE | 2019-10-05 11:50 | NUR ---
RT NOTE: PT STILL REFUSING TX DUE TO NAUSEA. NO SIGNS OF RESPIRATORY DISTRESS NOTED. SPO2 92 HR 83 RR 20. PT AWARE TO PAGE IF NEED FOR TX ARISES. WILL CONTINUE TO MONITOR.
--- NOTE | 2019-10-05 12:15 | NUR ---
WOUND CARE NOTE: IN TO SEE PATIENT FOR ASSESSMENT OF SACRAL WOUND. PATIENT NOT INTERESTED IN HAVING ASSESSMENT DONE AT THIS TIME. MADE APPOINTMENT TIME WITH PATIENT TO GO BACK AT APPROXIMATELY 1500. WILL ATTEMPT TO SEE AGAIN AT THAT TIME.
--- NOTE | 2019-10-05 12:23 | NUR ---
WOUND CARE NURSE AT BEDSIDE REFUSING SKIN ASSESSMENT AT THIS TIME
[2019-10-05] MEDS: PROMETHAZINE HCL 25 MG/ML 1ML IV PRN ×2 (12:57→20:17)
--- NOTE | 2019-10-05 13:57 | NUR ---
1350 10/05/19 I spoke with [facility] outreach analyst Christine (working with case aide Sohan)-she said they did receive the transfer order and today's clinical information. I let her know that patient has been downgraded to [facility] status ([facility] is not taking any ICU transfers at this time). I provided her with contact information for Dr. Rodríguez and the nurse's station, provided her with updated vitals-she said they will work on the transfer and give me a call back with an update.
--- NOTE | 2019-10-05 14:17 | NUR ---
DR. LUGO AT BEDSIDE
[2019-10-05] MEDS ORDERED: PANTOPRAZOLE 40 MG/10 ML VIAL INJ IV ONE ×2 (14:20→14:30)
--- NOTE | 2019-10-05 14:45 | NUR ---
[place] RESTAURANT LEAD UPDATED ON PATIENT STATUS. REPORTS THERE IS NO ACCEPTING PHYSICIAN AT THIS TIME. PER RESTAURANT LEAD WILL GO TO [facility] UNTIL FURTHER NOTICE
--- NOTE | 2019-10-05 15:20 | NUR ---
WOUND CARE NOTE: UNABLE TO ASSESS PATIENT'S SACRUM AT THIS TIME D/T PATIENT RECEIVING MIDLINE PLACEMENT UNDER STERILE TECHNIQUE CURRENTLY. LOOKING AT PATIENT'S WOUND PHOTOS TAKEN AT TIME OF ADMIT, APPEARS TO REPRESENT AN UNSTAGEABLE PRESSURE INJURY. UNABLE TO SEE WOUND AT THIS TIME, WILL CONTINUE TO ATTEMPT ASSESSMENT AT LATER TIME. IN THE MEANTIME, PATIENT SHOULD BE RECEIVING DAILY/PRN DRESSING CHANGES WITH THERAHONEY, AND OPTIFOAM GENTLE DRESSINGS, WELL ALL OTHER INTERVENTIONS PRESCRIBED BY MD AT INITIAL WOUND ASSESSMENT. WOUND CARE TEAM WILL CONTINUE TO MONITOR.
--- NOTE | 2019-10-05 15:21 | NUR ---
MIDLINE NURSE AT BEDSIDE FOR IV PLACEMENT
--- NOTE | 2019-10-05 15:30 | NUR ---
Midline Placement: Patient educated on need for midline placement. All risks and benefits explained and all questions and concerns addresses prior to procedure. 18g/10cm midline inserted via R BASILIC vein using Ultrasound. Sterile technique utilized. Blood return obtained from THE lumen and flushed easily with NS using proper technique. Midline secured with saline lock; biodisc and occlusive dressing applied. Primary RN notified. Midline lot #[id number].
--- NOTE | 2019-10-05 16:41 | NUR ---
assessment Patient is a 78 year old female in ICU. Per patients daughter Luz prior to admission patient lived on her property in a trailer. Patient needed more assistance the last week prior to admission. Per Luz patient had a caregiver who would help bathe her and put on her socks. Patients PCP is Dr Barnhart. Patient recently moved to the area from [place] [facility]. Luz has been informed of patients consult for [facility] transfer. Per Luz she agrees to transfer. I informed Luz that [facility] case specialist is working on transfer. Luz verbalized understanding and agreed to transfer. Addendum: 10/05/19 at 1645 by Andreina SCOTT Amended: Links added.
--- NOTE | 2019-10-05 17:31 | NUR ---
TRANSFER TO [facility] [phone] ACCEPTING PHYSICIAN Debby DANIELS [facility] ROOM 208 CRITICAL CARE TRANSPORT TIME 2030 REPORT PHONE [phone]
[2019-10-05] MEDS: ATORVASTATIN 20 MG TAB PO SCH (18:00)
--- NOTE | 2019-10-05 21:05 | NUR ---
[place] TRANSPORT TEAM AT BEDSIDE. REPORT IS GIVEN TO RN AND MD.
--- NOTE | 2019-10-05 21:10 | NUR ---
REPORT IS GIVEN TO KRISTINA LADD IN [facility] [phone]
--- NOTE | 2019-10-05 21:28 | NUR ---
TRANSFER [place] TEAM TOOK THE PATIENT. BELONGINGS- PHONE WITH RE[employer]ATION PLANT CORK INSULATOR X1 RING X1 Addendum: 10/05/19 at 2309 by Nadir Aj RN BELONGINGS SENT WITH PATIENT
[2019-10-05] MEDS ORDERED: PANTOPRAZOLE 40 MG/10 ML VIAL INJ IV SCH (22:00)
== END 2019-10-05 21:25 | disposition short-term general hospital (02) | DRG 280 ==
LOC: EDBD 22:07 → ER 22:11 → TELE 22:12 → TELE-EAST 10-03 07:36 → ICU WEST 10-03 23:44
PROVIDERS: ADMIT Hospitalist; ATTEND Internal Medicine
PROC: 5A09357 Assistance with Respiratory Ventilation, Less than 24 Consecutive Hours, Continuous Positive Airway Pressure (ICD-10-PCS; 2019-10-03)
PROC: 5A09357 Assistance with Respiratory Ventilation, Less than 24 Consecutive Hours, Continuous Positive Airway Pressure (ICD-10-PCS; principal; 2019-10-04)
PROC: 5A09357 Assistance with Respiratory Ventilation, Less than 24 Consecutive Hours, Continuous Positive Airway Pressure (ICD-10-PCS; 2019-10-05)
DX: I13.0 Hypertensive heart and chronic kidney disease with heart failure and stage 1 through stage 4 chronic kidney disease, or unspecified chronic kidney disease (principal); J96.01 Acute respiratory failure with hypoxia; I21.A1 Myocardial infarction type 2; N17.0 Acute kidney failure with tubular necrosis; I50.43 Acute on chronic combined systolic (congestive) and diastolic (congestive) heart failure; N39.0 Urinary tract infection, site not specified; J44.1 Chronic obstructive pulmonary disease with (acute) exacerbation; L03.119 Cellulitis of unspecified part of limb; Z68.44 Body mass index [BMI] 60.0-69.9, adult; E78.5 Hyperlipidemia, unspecified; E11.22 Type 2 diabetes mellitus with diabetic chronic kidney disease; N18.9 Chronic kidney disease, unspecified; E66.01 Morbid (severe) obesity due to excess calories; E87.5 Hyperkalemia; Z79.899 Other long term (current) drug therapy; Z79.82 Long term (current) use of aspirin; Z79.4 Long term (current) use of insulin; Z20.828 Contact with and (suspected) exposure to other viral communicable diseases
CPT/HCPCS: 36415; 36600; 71045; 80048; 80053; 81001; 82728; 82805; 82962; 83036; 83605; 83615; 83735; 83880; 84100; 84132; 84443; 84484; 85025; 85379; 86141; 87040; 87070; 87081; 87086; 87804; 87880; 93005; 93306; 93970; 94640; 94660; 96365; 96367; 96368; 96375; C9113; G0378; J0610; J0696; J1815; J1956; J2405; J3490; P9047; Q9956

== ENCOUNTER 2022-08-11 15:42 | Inpatient (IN) | payer OTHER ==
[~2022-08-11] VITALS: Ht 180.3 cm; Wt 153.9 kg
[~2022-08-11 15:42] MED LIST: ASPI-543 PO; ATO40T PO; FURO1TAB33 PO; HYDR-4833 PO; HYDR10TA26 PO; INS7030I SC; LOSA-69 PO; METF-370 PO
[2022-08-11 16:58] LABS: Basophils # (auto) 0.1 10 ^3/uL (0-0.2); Basophils % (auto) 0.4 % (0.0-2.0); Eosinophils # (auto) 0 10 ^3/uL (0-0.8); Eosinophils % (auto) 0.1 % (0.0-7.0); Hematocrit 48.2 % (41.0-53.0); Hemoglobin 15.2 g/dL (13.5-17.5); Lymphocytes # (auto) 0.4 10 ^3/uL (0.4-5.4); Mean Corpuscular Hemoglobin 24.9 pg (28.0-32.0); Mean Corpuscular Hgb Conc. 31.5 g/dL (32.0-36.0); Mean Corpuscular Volume 79.2 fL (80.0-100.0); Monocytes # (auto) 0.9 10 ^3/uL (0-1.3); Monocytes % (auto) 6.7 % (0.0-12.0); Neutrophils # (auto) 12.7 10 ^3/uL (1.6-8.6); Neutrophils % (auto) 89.8 % (37.0-80.0); Nucleated Red Blood Cells % 0.1 %; Red Blood Cells 6.09 10^6/uL (4.5-5.90); Red Cell Distribution Width 17.9 % (11.8-14.3); White Blood Cell 14.2 10^3/uL (4.4-10.8)
[2022-08-11 17:15] LABS: Albumin 2.7 g/dL (3.4-5.0); Calcium 8.9 mg/dL (8.5-10.1)
[2022-08-11 17:17] LABS: Lactic Acid w/Reflex 2.7 mmol/L (0.4-2.0)
[2022-08-11 17:18] LABS: BUN/Creatinine Ratio 45.2 (10.0-20.0); Bilirubin, Total 1.8 mg/dL (0.2-1.0); Total Protein 6.8 g/dL (6.4-8.2)
[2022-08-11 17:34] LABS: Urine Amorphous Crystal FEW /hpf (None Seen); Urine Bacteria FEW /hpf (None Seen); Urine Blood Negative /uL (Negative); Urine Hyaline Cast MOD /lpf (0 - 2); Urine Mucus FEW (None Seen); Urine Specific Gravity 1.012 (1.001-1.035); Urine WBC 27 /hpf (0 - 3)
[2022-08-11 17:55] LABS: INR 1.13 (0.9-1.15); Partial Thromboplastin Time 28.3 sec (24.6-33.4)
[2022-08-11] MEDS ORDERED: levoFLOXacin 500MG 100 ML IV ONE (18:30)
[2022-08-11] MEDS ORDERED: SODIUM CHLORIDE 0.9% 500 ML IV ONE (18:30)
[2022-08-11] MEDS ORDERED: cefTRIAXone 1GM/50ML D5W 50 ML IV ONE (18:30)
[2022-08-11] MEDS ORDERED: FUROSEMIDE 40 MG/4 ML VIAL IV ONE (21:00)
[2022-08-11] MEDS ORDERED: ALBUTEROL SULF 2.5 MG/0.5ML(0.5%) NEB SOLN NEB PRN (22:15)
[2022-08-11] MEDS ORDERED: DEXTROSE (50%) 50ML SYRG IV PRN (22:15)
[2022-08-11] MEDS ORDERED: MORPHINE SULFATE INJ 2 MG/ml SYRG IV PRN (22:15)
[2022-08-11] MEDS ORDERED: VANCOMYCIN PER PHARMACY 0 MG IV SCH (22:15)
[2022-08-11] MEDS ORDERED: NITROGLYCERIN 0.4 MG SL TAB SL PRN (22:15)
[2022-08-11] MEDS ORDERED: ACETAMINOPHEN 325 MG TAB PO PRN (22:15)
[2022-08-11] MEDS ORDERED: PANTOPRAZOLE 40 MG/10 ML VIAL INJ IV ONE (22:15)
[2022-08-11 22:55] LABS: Cholesterol < 50 mg/dL (< 200); HDL Cholesterol 29 mg/dL (40-59); LDL Cholesterol 19 mg/dL (< 100); Triglycerides 65 mg/dL (< 150)
[2022-08-11 23:00] VITALS: BP 102/49
[2022-08-11] MEDS: VANCOMYCIN 1GM/250ML 250 ML IV SCH (23:19)
[2022-08-12] MEDS: VANCOMYCIN 1GM/250ML 250 ML IV SCH ×2 (00:58→11:09)
[2022-08-12] MEDS: ALBUTEROL SULF 2.5 MG/0.5ML(0.5%) NEB SOLN NEB SCH ×6 (01:51→22:55)
[2022-08-12] MEDS: IPRATROPIUM BROM 0.5 MG/2.5ML INH SOL NEB SCH ×6 (01:51→22:54)
[2022-08-12] MEDS: MORPHINE SULFATE INJ 2 MG/ml SYRG IV PRN ×2 (03:30→08:42)
[2022-08-12 04:53] LABS: Basophils # (auto) 0 10 ^3/uL (0-0.2); Eosinophils # (auto) 0.1 10 ^3/uL (0-0.8); Lymphocytes # (auto) 0.7 10 ^3/uL (0.4-5.4); Red Cell Distribution Width 17.9 % (11.8-14.3); White Blood Cell 10.5 10^3/uL (4.4-10.8)
[2022-08-12 04:55] LABS: Basophils % (auto) 0.5 % (0.0-2.0); Hemoglobin 14.2 g/dL (13.5-17.5); Lymphocytes % (auto) 6.8 % (10.0-50.0); Mean Corpuscular Hemoglobin 25.5 pg (28.0-32.0); Mean Corpuscular Hgb Conc. 32.3 g/dL (32.0-36.0); Mean Corpuscular Volume 78.7 fL (80.0-100.0); Monocytes % (auto) 9.5 % (0.0-12.0); Neutrophils # (auto) 8.6 10 ^3/uL (1.6-8.6); Neutrophils % (auto) 82.2 % (37.0-80.0); Red Blood Cells 5.59 10^6/uL (4.5-5.90)
[2022-08-12 05:12] LABS: Albumin 2.3 g/dL (3.4-5.0); BUN/Creatinine Ratio 44.9 (10.0-20.0); Calcium 8.9 mg/dL (8.5-10.1); Potassium 3.9 mmol/L (3.5-5.1)
[2022-08-12 05:15] LABS: Bilirubin, Total 1.1 mg/dL (0.2-1.0); Total Protein 6.8 g/dL (6.4-8.2)
[2022-08-12] MEDS: ACCU-CHEK COMFORT CURVE STRIP VI SCH ×4 (06:28→22:22)
[2022-08-12] MEDS: InsuLIN REG 1unit/0.01ml Soln (100units/ml) SC SCH ×4 (07:04→22:35)
[2022-08-12] MEDS ORDERED: FUROSEMIDE 20 MG/2 ML VIAL IV SCH (10:00)
[2022-08-12] MEDS ORDERED: ENOXAPARIN SOD 40 MG/0.4 ML SYRINGE SC SCH (10:00)
[2022-08-12] MEDS ORDERED: PANTOPRAZOLE 40 MG/10 ML VIAL INJ IV SCH (10:00)
[2022-08-12] MEDS: ASPirin-EC 81 mg tab PO SCH (11:10)
[2022-08-12] MEDS: ASCORBIC ACID 500 MG TAB PO SCH ×2 (11:10→22:44)
[2022-08-12] MEDS: ZINC SULFATE 220mg CAP or TAB PO SCH (11:11)
[2022-08-12] MEDS: HEPARIN SODIUM (PORCINE) 5000 UNITS/ML 1ML VIAL SC SCH ×2 (11:11→22:46)
[2022-08-12] MEDS: MULTIPLE VITAMIN TAB PO SCH (11:12)
[2022-08-12] MEDS: CEFEPIME 1GM/ 50ML 50 ML IV SCH ×2 (13:18→22:44)
[2022-08-12 14:20] VITALS: BP 148/58
[2022-08-12 18:58] VITALS: BP 118/51
[2022-08-12] MEDS: FUROSEMIDE 40 MG/4 ML VIAL IV SCH (19:06)
[2022-08-12] MEDS: ATORVASTATIN 20 MG TAB PO SCH (22:44)
[2022-08-12 22:54] VITALS: BP 107/61
[2022-08-13] VITALS (44 sets, daily range): BP systolic 85–123; BP diastolic 43–72
[2022-08-13] MEDS: ALBUTEROL SULF 2.5 MG/0.5ML(0.5%) NEB SOLN NEB SCH ×6 (02:19→22:43)
[2022-08-13] MEDS: IPRATROPIUM BROM 0.5 MG/2.5ML INH SOL NEB SCH ×6 (02:19→22:45)
[2022-08-13 05:34] LABS: Basophils # (auto) 0 10 ^3/uL (0-0.2); Basophils % (auto) 0.3 % (0.0-2.0); Eosinophils # (auto) 0.2 10 ^3/uL (0-0.8); Eosinophils % (auto) 2.2 % (0.0-7.0); Hematocrit 41.4 % (41.0-53.0); Hemoglobin 13.6 g/dL (13.5-17.5); Lymphocytes # (auto) 0.5 10 ^3/uL (0.4-5.4); Lymphocytes % (auto) 5.4 % (10.0-50.0); Mean Corpuscular Hemoglobin 25.4 pg (28.0-32.0); Mean Corpuscular Hgb Conc. 32.9 g/dL (32.0-36.0); Mean Corpuscular Volume 77.2 fL (80.0-100.0); Monocytes # (auto) 0.8 10 ^3/uL (0-1.3); Monocytes % (auto) 8.2 % (0.0-12.0); Neutrophils # (auto) 7.9 10 ^3/uL (1.6-8.6); Neutrophils % (auto) 83.9 % (37.0-80.0); Nucleated Red Blood Cells % 0.1 %; Red Blood Cells 5.36 10^6/uL (4.5-5.90); Red Cell Distribution Width 17.7 % (11.8-14.3); White Blood Cell 9.5 10^3/uL (4.4-10.8)
[2022-08-13 06:00] LABS: Albumin 2.3 g/dL (3.4-5.0); Calcium 8.4 mg/dL (8.5-10.1); Magnesium 2.4 mg/dL (1.6-2.6); Potassium 3.9 mmol/L (3.5-5.1)
[2022-08-13 06:03] LABS: BUN/Creatinine Ratio 41.5 (10.0-20.0); Bilirubin, Total 1.2 mg/dL (0.2-1.0); Phosphorus 3.3 mg/dL (2.5-4.90)
[2022-08-13] MEDS: FUROSEMIDE 40 MG/4 ML VIAL IV SCH (06:39)
[2022-08-13] MEDS: ACCU-CHEK COMFORT CURVE STRIP VI SCH ×4 (06:39→22:58)
[2022-08-13] MEDS: InsuLIN REG 1unit/0.01ml Soln (100units/ml) SC SCH ×4 (06:40→22:58)
[2022-08-13] MEDS: VANCOMYCIN 1GM/250ML 250 ML IV SCH (10:00)
[2022-08-13] MEDS: CEFEPIME 1GM/ 50ML 50 ML IV SCH ×2 (10:00→21:39)
[2022-08-13] MEDS: MULTIPLE VITAMIN TAB PO SCH (10:44)
[2022-08-13] MEDS: ASPirin-EC 81 mg tab PO SCH (10:44)
[2022-08-13] MEDS: ZINC SULFATE 220mg CAP or TAB PO SCH (10:45)
[2022-08-13] MEDS: ASCORBIC ACID 500 MG TAB PO SCH ×2 (10:45→21:39)
[2022-08-13] MEDS: HYDROcodone-ACET 5/325MG TAB PO PRN ×3 (10:45→21:40)
[2022-08-13] MEDS: HEPARIN SODIUM (PORCINE) 5000 UNITS/ML 1ML VIAL SC SCH ×2 (10:46→21:48)
[2022-08-13] MEDS: THROAT LOZENGES(CEPASTAT) MT PRN (10:47)
[2022-08-13] MEDS: DOBUTamine 1000MCG/ML 250 ML IV SCH ×3 (12:36→23:08)
[2022-08-13] MEDS: FUROSEMIDE 100 MG/10ML VIAL IV SCH (18:23)
[2022-08-13] MEDS ORDERED: ERGOCALCIFEROL 50,000 UNIT(1.25MG) CAP PO SCH (18:30)
[2022-08-13] MEDS: ATORVASTATIN 20 MG TAB PO SCH (21:39)
[2022-08-14] VITALS (52 sets, daily range): BP systolic 83–137; BP diastolic 46–73
[2022-08-14] MEDS: IPRATROPIUM BROM 0.5 MG/2.5ML INH SOL NEB SCH ×6 (02:00→22:53)
[2022-08-14] MEDS: ALBUTEROL SULF 2.5 MG/0.5ML(0.5%) NEB SOLN NEB SCH ×6 (02:00→22:53)
[2022-08-14] MEDS: DOBUTamine 1000MCG/ML 250 ML IV SCH ×4 (04:38→20:55)
[2022-08-14 05:31] LABS: Basophils # (auto) 0 10 ^3/uL (0-0.2); Basophils % (auto) 0.3 % (0.0-2.0); Eosinophils # (auto) 0.3 10 ^3/uL (0-0.8); Eosinophils % (auto) 3.3 % (0.0-7.0); Lymphocytes # (auto) 0.5 10 ^3/uL (0.4-5.4); Monocytes # (auto) 0.8 10 ^3/uL (0-1.3)
[2022-08-14 05:34] LABS: Hemoglobin 13.5 g/dL (13.5-17.5); Lymphocytes % (auto) 5.5 % (10.0-50.0); Mean Corpuscular Hemoglobin 25.4 pg (28.0-32.0); Mean Corpuscular Hgb Conc. 32.2 g/dL (32.0-36.0); Mean Corpuscular Volume 78.8 fL (80.0-100.0); Monocytes % (auto) 8.1 % (0.0-12.0); Neutrophils # (auto) 7.7 10 ^3/uL (1.6-8.6); Neutrophils % (auto) 82.8 % (37.0-80.0); Red Blood Cells 5.33 10^6/uL (4.5-5.90); White Blood Cell 9.3 10^3/uL (4.4-10.8)
[2022-08-14 05:54] LABS: Potassium 3.7 mmol/L (3.5-5.1)
[2022-08-14 06:06] LABS: Albumin 2.3 g/dL (3.4-5.0); BUN/Creatinine Ratio 43.1 (10.0-20.0); Bilirubin, Total 1.1 mg/dL (0.2-1.0); Calcium 8.4 mg/dL (8.5-10.1); Magnesium 2.2 mg/dL (1.6-2.6); Phosphorus 2.9 mg/dL (2.5-4.90)
[2022-08-14] MEDS: FUROSEMIDE 100 MG/10ML VIAL IV SCH (06:30)
[2022-08-14] MEDS: THROAT LOZENGES(CEPASTAT) MT PRN ×3 (07:21→20:20)
[2022-08-14] MEDS: ACCU-CHEK COMFORT CURVE STRIP VI SCH ×4 (07:28→21:12)
[2022-08-14] MEDS: InsuLIN REG 1unit/0.01ml Soln (100units/ml) SC SCH ×4 (07:30→22:00)
[2022-08-14] MEDS: HEPARIN SODIUM (PORCINE) 5000 UNITS/ML 1ML VIAL SC SCH ×2 (10:30→21:16)
[2022-08-14] MEDS: VANCOMYCIN 1GM/250ML 250 ML IV SCH (10:30)
[2022-08-14] MEDS: CEFEPIME 1GM/ 50ML 50 ML IV SCH ×2 (10:31→21:12)
[2022-08-14] MEDS: ASPirin-EC 81 mg tab PO SCH (10:31)
[2022-08-14] MEDS: ASCORBIC ACID 500 MG TAB PO SCH ×2 (10:31→21:12)
[2022-08-14] MEDS: ZINC SULFATE 220mg CAP or TAB PO SCH (10:31)
[2022-08-14] MEDS: MULTIPLE VITAMIN TAB PO SCH (10:31)
[2022-08-14] MEDS: SALINE 0.65 % NASAL SPRAY 45ML BOTTLE EACHNOSTRI SCH ×3 (11:21→21:47)
[2022-08-14] MEDS: HYDROcodone-ACET 5/325MG TAB PO PRN (16:03)
[2022-08-14] MEDS: ATORVASTATIN 20 MG TAB PO SCH (21:11)
[2022-08-14] MEDS: MUPIROCIN 2% OINT 15gm or 22gm FOR MRSA NARES TOP SCH (21:46)
[2022-08-15] VITALS (85 sets, daily range): BP systolic 94–145; BP diastolic 46–118
[2022-08-15] MEDS: IPRATROPIUM BROM 0.5 MG/2.5ML INH SOL NEB SCH ×6 (02:00→21:54)
[2022-08-15] MEDS: ALBUTEROL SULF 2.5 MG/0.5ML(0.5%) NEB SOLN NEB SCH ×6 (02:00→21:54)
[2022-08-15] MEDS: HYDROcodone-ACET 5/325MG TAB PO PRN (02:33)
[2022-08-15] MEDS: DOBUTamine 1000MCG/ML 250 ML IV SCH ×4 (02:58→19:40)
[2022-08-15] MEDS: SALINE 0.65 % NASAL SPRAY 45ML BOTTLE EACHNOSTRI SCH ×4 (06:08→22:22)
[2022-08-15] MEDS: ACCU-CHEK COMFORT CURVE STRIP VI SCH ×4 (06:09→21:54)
[2022-08-15] MEDS: FUROSEMIDE 100 MG/10ML VIAL IV SCH ×3 (06:12→18:46)
[2022-08-15] MEDS: InsuLIN REG 1unit/0.01ml Soln (100units/ml) SC SCH ×4 (06:18→22:21)
[2022-08-15 06:22] LABS: Basophils # (auto) 0 10 ^3/uL (0-0.2); Basophils % (auto) 0.3 % (0.0-2.0); Eosinophils # (auto) 0.2 10 ^3/uL (0-0.8); Eosinophils % (auto) 1.8 % (0.0-7.0); Hematocrit 44.2 % (41.0-53.0); Lymphocytes # (auto) 0.5 10 ^3/uL (0.4-5.4); Lymphocytes % (auto) 4.8 % (10.0-50.0); Mean Corpuscular Hemoglobin 25.2 pg (28.0-32.0); Mean Corpuscular Hgb Conc. 31.7 g/dL (32.0-36.0); Mean Corpuscular Volume 79.3 fL (80.0-100.0); Monocytes % (auto) 9.2 % (0.0-12.0); Neutrophils # (auto) 9.4 10 ^3/uL (1.6-8.6); Neutrophils % (auto) 83.9 % (37.0-80.0); Red Blood Cells 5.57 10^6/uL (4.5-5.90); Red Cell Distribution Width 17.9 % (11.8-14.3); White Blood Cell 11.2 10^3/uL (4.4-10.8)
[2022-08-15 06:33] LABS: BUN/Creatinine Ratio 42.3 (10.0-20.0); Calcium 8.8 mg/dL (8.5-10.1); Magnesium 2.3 mg/dL (1.6-2.6)
[2022-08-15] MEDS: VANCOMYCIN 1GM/250ML 250 ML IV SCH (10:34)
[2022-08-15] MEDS: ZINC SULFATE 220mg CAP or TAB PO SCH (10:35)
[2022-08-15] MEDS: ASCORBIC ACID 500 MG TAB PO SCH ×2 (10:35→21:53)
[2022-08-15] MEDS: CEFEPIME 1GM/ 50ML 50 ML IV SCH ×2 (10:35→21:52)
[2022-08-15] MEDS: ASPirin-EC 81 mg tab PO SCH (10:35)
[2022-08-15] MEDS: MULTIPLE VITAMIN TAB PO SCH (10:35)
[2022-08-15] MEDS: HEPARIN SODIUM (PORCINE) 5000 UNITS/ML 1ML VIAL SC SCH ×2 (10:36→21:55)
[2022-08-15] MEDS: MUPIROCIN 2% OINT 15gm or 22gm FOR MRSA NARES TOP SCH ×2 (10:36→21:53)
[2022-08-15] MEDS ORDERED: INSULIN LANTUS (GLARGINE) 1 /0.01ml (100units/ml) SC ONE (15:45)
[2022-08-15] MEDS ORDERED: ALBUTEROL SULF 2.5 MG/0.5ML(0.5%) NEB SOLN NEB ONE (21:15)
[2022-08-15] MEDS ORDERED: methylPREDNISolone SOD SUCC 125 MG/2 ML VL IV ONE (21:15)
[2022-08-15] MEDS ORDERED: FUROSEMIDE 40 MG/4 ML VIAL IV ONE (21:15)
[2022-08-15] MEDS: ATORVASTATIN 20 MG TAB PO SCH (21:52)
[2022-08-16] VITALS (69 sets, daily range): BP systolic 74–146; BP diastolic 40–89
[2022-08-16] MEDS: FLUTICASONE PROP NASAL SPR 0.05 % (50MCG) 16GM EACHNOSTRI SCH ×2 (01:43→10:00)
[2022-08-16] MEDS: ALBUTEROL SULF 2.5 MG/0.5ML(0.5%) NEB SOLN NEB SCH ×6 (06:31→22:46)
[2022-08-16] MEDS: IPRATROPIUM BROM 0.5 MG/2.5ML INH SOL NEB SCH ×6 (06:31→22:45)
[2022-08-16 06:34] LABS: Hemoglobin 15.7 g/dL (13.5-17.5); Mean Corpuscular Hgb Conc. 31.3 g/dL (32.0-36.0)
[2022-08-16 06:38] LABS: Hematocrit 50.2 % (41.0-53.0); Mean Corpuscular Volume 79.9 fL (80.0-100.0); Red Blood Cells 6.28 10^6/uL (4.5-5.90); Red Cell Distribution Width 18.2 % (11.8-14.3); White Blood Cell 12.5 10^3/uL (4.4-10.8)
[2022-08-16] MEDS: SALINE 0.65 % NASAL SPRAY 45ML BOTTLE EACHNOSTRI SCH ×4 (06:47→21:35)
[2022-08-16 06:48] LABS: Band Neutrophils % (manual) 0; Basophils % (manual) 0 (0.0-2.0); Blast Cells 0; Eosinophils % (manual) 0 (0-7); Metamyelocytes % 0; Myelocytes % 0; Promyelocytes % 0; Reactive Lymphocytes 0
[2022-08-16] MEDS: FUROSEMIDE 100 MG/10ML VIAL IV SCH (06:48)
[2022-08-16 06:52] LABS: Albumin 2.5 g/dL (3.4-5.0); BUN/Creatinine Ratio 39.3 (10.0-20.0); Calcium 9.3 mg/dL (8.5-10.1)
[2022-08-16] MEDS: InsuLIN REG 1unit/0.01ml Soln (100units/ml) SC SCH ×5 (06:52→23:55)
[2022-08-16] MEDS: ACCU-CHEK COMFORT CURVE STRIP VI SCH ×5 (06:52→23:58)
[2022-08-16 07:00] LABS: Bilirubin, Total 1.3 mg/dL (0.2-1.0)
[2022-08-16] MEDS: INSULIN LANTUS (GLARGINE) 1 /0.01ml (100units/ml) SC SCH (07:32)
[2022-08-16] MEDS: ZINC SULFATE 220mg CAP or TAB PO SCH (08:59)
[2022-08-16] MEDS: MULTIPLE VITAMIN TAB PO SCH (08:59)
[2022-08-16] MEDS: ASPirin-EC 81 mg tab PO SCH (08:59)
[2022-08-16] MEDS: ASCORBIC ACID 500 MG TAB PO SCH (08:59)
[2022-08-16] MEDS: VANCOMYCIN 1GM/250ML 250 ML IV SCH (09:10)
[2022-08-16] MEDS: HEPARIN SODIUM (PORCINE) 5000 UNITS/ML 1ML VIAL SC SCH ×2 (09:10→21:36)
[2022-08-16] MEDS: MUPIROCIN 2% OINT 15gm or 22gm FOR MRSA NARES TOP SCH ×2 (10:00→15:49)
[2022-08-16] MEDS: CEFEPIME 1GM/ 50ML 50 ML IV SCH ×2 (10:13→21:35)
[2022-08-16 10:53] LABS: Lymphocytes % (manual) 2 (10.0-50.0)
[2022-08-16 10:54] LABS: Monocytes % (manual) 1 (0-12)
[2022-08-16] MEDS: PROPOFOL 100 ML IV SCH ×3 (11:00→23:12)
[2022-08-16] MEDS ORDERED: NOREPINEPHRINE 8 MG/250ML KIT 250 ML IV SCH ×2 (11:00→13:00)
[2022-08-16] MEDS ORDERED: ETOMIDATE (2MG/ML) 20ML VIAL IV ONE (11:00)
[2022-08-16] MEDS: MIDAZOLAM DRIP 50 mg/50mL 50 ML IV SCH (11:00)
[2022-08-16] MEDS: fentaNYL Drip 2500mCg/250mlNS 250 ML IV SCH (11:00)
[2022-08-16] MEDS ORDERED: ROCURONIUM 10MG/ML 10ML VIAL IV ONE (11:00)
[2022-08-16] MEDS ORDERED: DEXTROSE (50%) 50ML SYRG IV PRN (11:30)
[2022-08-16] MEDS ORDERED: SODIUM CHLORIDE 0.9% 250 ML IV ONE (13:00)
[2022-08-16] MEDS ORDERED: NOREPINEPHRINE BITARTRATE 32 MG in SODIUM CHL 0.9% 218 ML IV SCH (16:45)
[2022-08-16] MEDS: VASOPRESSIN 20 UNITS in SODIUM CHL 0.9% 99 ML IV SCH (16:45)
[2022-08-16] MEDS: NOREPINEPHRINE BITARTRATE 32 MG in SODIUM CHL 0.9% 218 ML IV SCH (16:45)
[2022-08-16] MEDS ORDERED: VASOPRESSIN 20 UNITS in SODIUM CHL 0.9% 99 ML IV SCH (16:45)
[2022-08-16] MEDS: LINEZOLID 600MG/300ML 300 ML IV SCH (22:10)
[2022-08-17] VITALS (104 sets, daily range): BP systolic 86–124; BP diastolic 47–69
[2022-08-17] MEDS: MIDAZOLAM DRIP 50 mg/50mL 50 ML IV SCH ×2 (01:51→10:18)
[2022-08-17] MEDS: ALBUTEROL SULF 2.5 MG/0.5ML(0.5%) NEB SOLN NEB SCH ×6 (02:29→22:41)
[2022-08-17] MEDS: IPRATROPIUM BROM 0.5 MG/2.5ML INH SOL NEB SCH ×6 (02:30→22:01)
[2022-08-17] MEDS: ACCU-CHEK COMFORT CURVE STRIP VI SCH ×5 (04:00→20:13)
[2022-08-17] MEDS: fentaNYL Drip 2500mCg/250mlNS 250 ML IV SCH ×2 (04:38→17:43)
[2022-08-17] MEDS: InsuLIN REG 1unit/0.01ml Soln (100units/ml) SC SCH ×5 (04:46→20:13)
[2022-08-17] MEDS: SALINE 0.65 % NASAL SPRAY 45ML BOTTLE EACHNOSTRI SCH ×4 (06:00→21:36)
[2022-08-17 06:10] LABS: Eosinophils # (auto) 0 10 ^3/uL (0-0.8); Hemoglobin 15.1 g/dL (13.5-17.5); Nucleated Red Blood Cells % 0.3 %
[2022-08-17 06:14] LABS: Basophils # (auto) 0.2 10 ^3/uL (0-0.2); Lymphocytes # (auto) 0.4 10 ^3/uL (0.4-5.4); Lymphocytes % (auto) 2.3 % (10.0-50.0); Mean Corpuscular Hemoglobin 24.8 pg (28.0-32.0); Mean Corpuscular Hgb Conc. 32.1 g/dL (32.0-36.0); Mean Corpuscular Volume 77.5 fL (80.0-100.0); Monocytes # (auto) 1.4 10 ^3/uL (0-1.3); Monocytes % (auto) 7.3 % (0.0-12.0); Neutrophils # (auto) 16.8 10 ^3/uL (1.6-8.6); Neutrophils % (auto) 89.4 % (37.0-80.0); Red Blood Cells 6.06 10^6/uL (4.5-5.90); White Blood Cell 18.8 10^3/uL (4.4-10.8)
[2022-08-17 06:26] LABS: Albumin 2.3 g/dL (3.4-5.0); Calcium 8.7 mg/dL (8.5-10.1); Potassium 4.4 mmol/L (3.5-5.1)
[2022-08-17 06:31] LABS: BUN/Creatinine Ratio 40.4 (10.0-20.0); Bilirubin, Total 0.9 mg/dL (0.2-1.0); Total Protein 6.8 g/dL (6.4-8.2)
[2022-08-17] MEDS: INSULIN LANTUS (GLARGINE) 1 /0.01ml (100units/ml) SC SCH (06:48)
[2022-08-17] MEDS: LINEZOLID 600MG/300ML 300 ML IV SCH ×2 (10:18→21:35)
[2022-08-17] MEDS: ASPirin-EC 81 mg tab PO SCH (10:18)
[2022-08-17] MEDS: HEPARIN SODIUM (PORCINE) 5000 UNITS/ML 1ML VIAL SC SCH ×2 (10:22→21:35)
[2022-08-17] MEDS: MUPIROCIN 2% OINT 15gm or 22gm FOR MRSA NARES TOP SCH ×2 (10:26→21:35)
[2022-08-17] MEDS: CEFEPIME 1GM/ 50ML 50 ML IV SCH (10:26)
[2022-08-17] MEDS ORDERED: FUROSEMIDE 20 MG/2 ML VIAL IV ONE (11:30)
[2022-08-17] MEDS ORDERED: ALBUMIN 25% 100 ML IV ONE (11:30)
[2022-08-17] MEDS: VASOPRESSIN 20 UNITS in SODIUM CHL 0.9% 99 ML IV SCH (14:59)
[2022-08-17] MEDS: NOREPINEPHRINE BITARTRATE 32 MG in SODIUM CHL 0.9% 218 ML IV SCH (17:00)
[2022-08-17] MEDS: PIPERACILLIN-TAZOB 3.375GM 100 ML IV SCH (17:24)
[2022-08-18] VITALS (107 sets, daily range): BP systolic 81–119; BP diastolic 43–88
[2022-08-18] MEDS: PIPERACILLIN-TAZOB 3.375GM 100 ML IV SCH ×4 (00:05→18:25)
[2022-08-18] MEDS: ACCU-CHEK COMFORT CURVE STRIP VI SCH ×6 (00:05→20:00)
[2022-08-18] MEDS: InsuLIN REG 1unit/0.01ml Soln (100units/ml) SC SCH ×6 (00:16→20:00)
[2022-08-18] MEDS: VASOPRESSIN 20 UNITS in SODIUM CHL 0.9% 99 ML IV SCH (02:06)
[2022-08-18] MEDS: IPRATROPIUM BROM 0.5 MG/2.5ML INH SOL NEB SCH ×6 (02:25→22:18)
[2022-08-18] MEDS: ALBUTEROL SULF 2.5 MG/0.5ML(0.5%) NEB SOLN NEB SCH ×6 (02:25→22:18)
[2022-08-18] MEDS: MIDAZOLAM DRIP 50 mg/50mL 50 ML IV SCH ×2 (03:19→12:00)
[2022-08-18 05:33] LABS: Hemoglobin 14.2 g/dL (13.5-17.5); Mean Corpuscular Volume 77.2 fL (80.0-100.0)
[2022-08-18 05:35] LABS: Basophils # (auto) 0.1 10 ^3/uL (0-0.2); Basophils % (auto) 0.4 % (0.0-2.0); Eosinophils # (auto) 0.2 10 ^3/uL (0-0.8); Eosinophils % (auto) 1.5 % (0.0-7.0); Hematocrit 43.7 % (41.0-53.0); Lymphocytes # (auto) 0.6 10 ^3/uL (0.4-5.4); Lymphocytes % (auto) 3.8 % (10.0-50.0); Mean Corpuscular Hgb Conc. 32.4 g/dL (32.0-36.0); Monocytes # (auto) 1.5 10 ^3/uL (0-1.3); Monocytes % (auto) 9.5 % (0.0-12.0); Neutrophils # (auto) 13.5 10 ^3/uL (1.6-8.6); Neutrophils % (auto) 84.8 % (37.0-80.0); Nucleated Red Blood Cells % 0.1 %; Red Blood Cells 5.66 10^6/uL (4.5-5.90); White Blood Cell 15.9 10^3/uL (4.4-10.8)
[2022-08-18] MEDS: PROPOFOL 100 ML IV SCH (05:45)
[2022-08-18] MEDS: SALINE 0.65 % NASAL SPRAY 45ML BOTTLE EACHNOSTRI SCH ×4 (05:45→22:02)
[2022-08-18 05:57] LABS: BUN/Creatinine Ratio 42.3 (10.0-20.0); Calcium 8.6 mg/dL (8.5-10.1); Magnesium 2.3 mg/dL (1.6-2.6); Potassium 4.4 mmol/L (3.5-5.1)
[2022-08-18] MEDS: INSULIN LANTUS (GLARGINE) 1 /0.01ml (100units/ml) SC SCH (07:23)
[2022-08-18] MEDS ORDERED: AMIODARONE 450mg/250ml AE 250 ML IV SCH (09:15)
[2022-08-18] MEDS ORDERED: AMIODARONE HCL 150 MG in D5W 5% 100 ML IV ONE (09:45)
[2022-08-18] MEDS: MUPIROCIN 2% OINT 15gm or 22gm FOR MRSA NARES TOP SCH ×2 (10:00→22:02)
[2022-08-18] MEDS: ASPirin-EC 81 mg tab PO SCH (10:30)
[2022-08-18] MEDS: LINEZOLID 600MG/300ML 300 ML IV SCH ×2 (10:30→22:01)
[2022-08-18] MEDS: HEPARIN SODIUM (PORCINE) 5000 UNITS/ML 1ML VIAL SC SCH ×2 (10:41→22:07)
[2022-08-18] MEDS: fentaNYL Drip 2500mCg/250mlNS 250 ML IV SCH (11:00)
[2022-08-18] MEDS ORDERED: Glucerna 1.2 Cal 1Liter BOTTLE GT SCH (13:00)
[2022-08-18] MEDS ORDERED: FUROSEMIDE 100 MG/10ML VIAL IV ONE (13:15)
[2022-08-18] MEDS: AMIODARONE 450mg/250ml AE 250 ML IV SCH (15:15)
[2022-08-18] MEDS: ALBUMIN 25% 50 ML IV SCH ×2 (15:20→21:20)
[2022-08-18] MEDS: NOREPINEPHRINE BITARTRATE 32 MG in SODIUM CHL 0.9% 218 ML IV SCH (16:45)
[2022-08-18] MEDS ORDERED: DIGOXIN (250MCG/ML) 2 ML AMPULE IV ONE (21:15)
[2022-08-18] MEDS ORDERED: LINEZOLID 600MG/300ML 300 ML IV SCH (22:00)
[2022-08-18] MEDS: Pro-Stat SF 30ml Vanilla GT SCH (22:02)
[2022-08-19] VITALS (105 sets, daily range): BP systolic 97–138; BP diastolic 50–78
[2022-08-19] MEDS: PIPERACILLIN-TAZOB 3.375GM 100 ML IV SCH ×2 (00:14→06:23)
[2022-08-19] MEDS: ACCU-CHEK COMFORT CURVE STRIP VI SCH ×7 (00:14→23:40)
[2022-08-19] MEDS: InsuLIN REG 1unit/0.01ml Soln (100units/ml) SC SCH ×7 (00:24→23:43)
[2022-08-19] MEDS: IPRATROPIUM BROM 0.5 MG/2.5ML INH SOL NEB SCH ×6 (01:59→22:22)
[2022-08-19] MEDS: ALBUTEROL SULF 2.5 MG/0.5ML(0.5%) NEB SOLN NEB SCH ×6 (01:59→22:22)
[2022-08-19] MEDS: PROPOFOL 100 ML IV SCH (04:00)
[2022-08-19] MEDS: ALBUMIN 25% 50 ML IV SCH (05:15)
[2022-08-19 05:42] LABS: Basophils # (auto) 0.1 10 ^3/uL (0-0.2); Basophils % (auto) 0.4 % (0.0-2.0); Eosinophils # (auto) 0.2 10 ^3/uL (0-0.8); Eosinophils % (auto) 1.1 % (0.0-7.0); Hematocrit 44.1 % (41.0-53.0); Hemoglobin 14.2 g/dL (13.5-17.5); Lymphocytes # (auto) 0.7 10 ^3/uL (0.4-5.4); Lymphocytes % (auto) 4.2 % (10.0-50.0); Mean Corpuscular Hemoglobin 24.9 pg (28.0-32.0); Mean Corpuscular Hgb Conc. 32.2 g/dL (32.0-36.0); Mean Corpuscular Volume 77.5 fL (80.0-100.0); Monocytes # (auto) 1.7 10 ^3/uL (0-1.3); Monocytes % (auto) 10.4 % (0.0-12.0); Neutrophils # (auto) 13.6 10 ^3/uL (1.6-8.6); Neutrophils % (auto) 83.9 % (37.0-80.0); Nucleated Red Blood Cells % 0.1 %; Red Blood Cells 5.69 10^6/uL (4.5-5.90); Red Cell Distribution Width 18.3 % (11.8-14.3); White Blood Cell 16.3 10^3/uL (4.4-10.8)
[2022-08-19 06:07] LABS: Potassium 4.4 mmol/L (3.5-5.1)
[2022-08-19 06:14] LABS: Albumin 2.5 g/dL (3.4-5.0); BUN/Creatinine Ratio 38.6 (10.0-20.0); Bilirubin, Total 1.3 mg/dL (0.2-1.0); Calcium 8.2 mg/dL (8.5-10.1); Magnesium 2.5 mg/dL (1.6-2.6); Phosphorus 3.4 mg/dL (2.5-4.90)
[2022-08-19] MEDS: SALINE 0.65 % NASAL SPRAY 45ML BOTTLE EACHNOSTRI SCH ×4 (06:18→20:58)
[2022-08-19] MEDS: INSULIN LANTUS (GLARGINE) 1 /0.01ml (100units/ml) SC SCH (07:11)
[2022-08-19] MEDS: AMIODARONE 450mg/250ml AE 250 ML IV SCH ×3 (10:00→23:44)
[2022-08-19] MEDS: MUPIROCIN 2% OINT 15gm or 22gm FOR MRSA NARES TOP SCH (10:13)
[2022-08-19] MEDS: HEPARIN SODIUM (PORCINE) 5000 UNITS/ML 1ML VIAL SC SCH ×2 (11:27→20:58)
[2022-08-19] MEDS: FUROSEMIDE INJECTION 100 MG in SODIUM CHL 0.9% 100 ML IV SCH ×2 (11:28→22:37)
[2022-08-19] MEDS: fentaNYL Drip 2500mCg/250mlNS 250 ML IV SCH (11:28)
[2022-08-19] MEDS: ASPirin-EC 81 mg tab PO SCH (11:29)
[2022-08-19] MEDS: LINEZOLID 600MG/300ML 300 ML IV SCH ×2 (11:29→20:59)
[2022-08-19] MEDS: Pro-Stat SF 30ml Vanilla GT SCH ×2 (11:52→20:59)
[2022-08-19] MEDS: CEFEPIME 2 GM in SODIUM CHL 0.9% 50 ML IV SCH ×2 (14:33→23:43)
[2022-08-19] MEDS: MIDAZOLAM DRIP 50 mg/50mL 50 ML IV SCH ×2 (14:33→21:16)
[2022-08-19] MEDS: NOREPINEPHRINE BITARTRATE 32 MG in SODIUM CHL 0.9% 218 ML IV SCH (16:15)
[2022-08-20] VITALS (105 sets, daily range): BP systolic 89–120; BP diastolic 30–71
[2022-08-20] MEDS: PROPOFOL 100 ML IV SCH ×2 (01:10→23:20)
[2022-08-20] MEDS: fentaNYL Drip 2500mCg/250mlNS 250 ML IV SCH ×2 (01:10→14:15)
[2022-08-20] MEDS: MIDAZOLAM DRIP 50 mg/50mL 50 ML IV SCH ×3 (02:28→20:46)
[2022-08-20] MEDS: ALBUTEROL SULF 2.5 MG/0.5ML(0.5%) NEB SOLN NEB SCH ×5 (02:38→21:56)
[2022-08-20] MEDS: IPRATROPIUM BROM 0.5 MG/2.5ML INH SOL NEB SCH ×5 (02:38→21:56)
[2022-08-20] MEDS: ACCU-CHEK COMFORT CURVE STRIP VI SCH ×6 (03:46→23:33)
[2022-08-20] MEDS: InsuLIN REG 1unit/0.01ml Soln (100units/ml) SC SCH ×6 (03:50→23:18)
[2022-08-20] MEDS: SALINE 0.65 % NASAL SPRAY 45ML BOTTLE EACHNOSTRI SCH ×4 (05:30→22:02)
[2022-08-20 06:04] LABS: Basophils # (auto) 0.2 10 ^3/uL (0-0.2); Hematocrit 43.4 % (41.0-53.0); Hemoglobin 14.2 g/dL (13.5-17.5); Lymphocytes # (auto) 0.7 10 ^3/uL (0.4-5.4); Mean Corpuscular Hgb Conc. 32.7 g/dL (32.0-36.0); Red Cell Distribution Width 18.2 % (11.8-14.3)
[2022-08-20 06:08] LABS: Eosinophils # (auto) 0.6 10 ^3/uL (0-0.8); Eosinophils % (auto) 2.9 % (0.0-7.0); Lymphocytes % (auto) 3.3 % (10.0-50.0); Mean Corpuscular Hemoglobin 25.5 pg (28.0-32.0); Mean Corpuscular Volume 78.1 fL (80.0-100.0); Monocytes # (auto) 2.1 10 ^3/uL (0-1.3); Monocytes % (auto) 10.1 % (0.0-12.0); Neutrophils # (auto) 17.5 10 ^3/uL (1.6-8.6); Neutrophils % (auto) 82.7 % (37.0-80.0); Nucleated Red Blood Cells % 0.2 %; Red Blood Cells 5.56 10^6/uL (4.5-5.90)
[2022-08-20 06:24] LABS: BUN/Creatinine Ratio 41.2 (10.0-20.0); Calcium 8.6 mg/dL (8.5-10.1); Potassium 3.9 mmol/L (3.5-5.1)
[2022-08-20] MEDS: INSULIN LANTUS (GLARGINE) 1 /0.01ml (100units/ml) SC SCH (06:39)
[2022-08-20 07:05] LABS: White Blood Cell 21.1 10^3/uL (4.4-10.8)
[2022-08-20] MEDS ORDERED: HEPARIN SODIUM (PORCINE) 5000 UNITS/ML 1ML VIAL ONE (09:13)
[2022-08-20] MEDS: ASPirin-EC 81 mg tab PO SCH (09:20)
[2022-08-20] MEDS: LINEZOLID 600MG/300ML 300 ML IV SCH ×2 (09:20→22:03)
[2022-08-20] MEDS: HEPARIN SODIUM (PORCINE) 5000 UNITS/ML 1ML VIAL SC SCH ×2 (09:21→22:03)
[2022-08-20] MEDS: Pro-Stat SF 30ml Vanilla GT SCH ×2 (10:43→22:02)
[2022-08-20] MEDS: FUROSEMIDE INJECTION 100 MG in SODIUM CHL 0.9% 100 ML IV SCH ×2 (13:56→20:32)
[2022-08-20] MEDS: CEFEPIME 2 GM in SODIUM CHL 0.9% 50 ML IV SCH ×2 (14:11→23:33)
[2022-08-20] MEDS: AMIODARONE 450mg/250ml AE 250 ML IV SCH (14:57)
[2022-08-21] VITALS (102 sets, daily range): BP systolic 86–118; BP diastolic 50–66
[2022-08-21] MEDS: fentaNYL Drip 2500mCg/250mlNS 250 ML IV SCH (01:53)
[2022-08-21] MEDS: ALBUTEROL SULF 2.5 MG/0.5ML(0.5%) NEB SOLN NEB SCH ×6 (01:58→22:27)
[2022-08-21] MEDS: IPRATROPIUM BROM 0.5 MG/2.5ML INH SOL NEB SCH ×6 (01:58→22:27)
[2022-08-21] MEDS: FUROSEMIDE INJECTION 100 MG in SODIUM CHL 0.9% 100 ML IV SCH ×4 (02:23→22:23)
[2022-08-21] MEDS: MIDAZOLAM DRIP 50 mg/50mL 50 ML IV SCH ×3 (03:31→20:32)
[2022-08-21] MEDS: ACCU-CHEK COMFORT CURVE STRIP VI SCH ×5 (04:13→20:46)
[2022-08-21] MEDS: InsuLIN REG 1unit/0.01ml Soln (100units/ml) SC SCH ×5 (04:15→20:47)
[2022-08-21] MEDS: NOREPINEPHRINE BITARTRATE 32 MG in SODIUM CHL 0.9% 218 ML IV SCH ×2 (04:55→16:45)
[2022-08-21] MEDS: AMIODARONE 450mg/250ml AE 250 ML IV SCH (04:56)
[2022-08-21] MEDS: SALINE 0.65 % NASAL SPRAY 45ML BOTTLE EACHNOSTRI SCH ×3 (05:54→18:00)
[2022-08-21 06:08] LABS: Lymphocytes # (auto) 0.5 10 ^3/uL (0.4-5.4); Nucleated Red Blood Cells % 0.1 %
[2022-08-21 06:11] LABS: Basophils # (auto) 0.1 10 ^3/uL (0-0.2); Basophils % (auto) 0.3 % (0.0-2.0); Eosinophils # (auto) 0.1 10 ^3/uL (0-0.8); Eosinophils % (auto) 0.6 % (0.0-7.0); Hematocrit 46.5 % (41.0-53.0); Hemoglobin 14.9 g/dL (13.5-17.5); Lymphocytes % (auto) 2.5 % (10.0-50.0); Mean Corpuscular Hemoglobin 25.4 pg (28.0-32.0); Mean Corpuscular Volume 79.6 fL (80.0-100.0); Monocytes # (auto) 1.5 10 ^3/uL (0-1.3); Neutrophils # (auto) 19.1 10 ^3/uL (1.6-8.6); Neutrophils % (auto) 89.6 % (37.0-80.0); Red Blood Cells 5.84 10^6/uL (4.5-5.90); White Blood Cell 21.3 10^3/uL (4.4-10.8)
[2022-08-21] MEDS: INSULIN LANTUS (GLARGINE) 1 /0.01ml (100units/ml) SC SCH (06:13)
[2022-08-21 08:37] LABS: BUN/Creatinine Ratio 41.1 (10.0-20.0); Calcium 8.5 mg/dL (8.5-10.1); Magnesium 2.2 mg/dL (1.6-2.6); Potassium 3.7 mmol/L (3.5-5.1)
[2022-08-21] MEDS: ASPirin-EC 81 mg tab PO SCH (10:00)
[2022-08-21] MEDS: LINEZOLID 600MG/300ML 300 ML IV SCH ×2 (10:41→21:50)
[2022-08-21] MEDS: HEPARIN SODIUM (PORCINE) 5000 UNITS/ML 1ML VIAL SC SCH ×2 (10:46→21:54)
[2022-08-21] MEDS: Pro-Stat SF 30ml Vanilla GT SCH ×2 (11:03→22:00)
[2022-08-21] MEDS: CEFEPIME 2 GM in SODIUM CHL 0.9% 50 ML IV SCH (12:00)
[2022-08-22] VITALS (101 sets, daily range): BP systolic 76–117; BP diastolic 39–67
[2022-08-22] MEDS: CEFEPIME 2 GM in SODIUM CHL 0.9% 50 ML IV SCH ×2 (00:20→12:27)
[2022-08-22] MEDS: InsuLIN REG 1unit/0.01ml Soln (100units/ml) SC SCH ×6 (00:21→20:00)
[2022-08-22] MEDS: ACCU-CHEK COMFORT CURVE STRIP VI SCH ×6 (00:21→20:00)
[2022-08-22] MEDS: PROPOFOL 100 ML IV SCH ×2 (01:11→18:40)
[2022-08-22] MEDS: FUROSEMIDE INJECTION 100 MG in SODIUM CHL 0.9% 100 ML IV SCH ×7 (01:11→23:38)
[2022-08-22] MEDS: IPRATROPIUM BROM 0.5 MG/2.5ML INH SOL NEB SCH ×6 (02:08→22:34)
[2022-08-22] MEDS: ALBUTEROL SULF 2.5 MG/0.5ML(0.5%) NEB SOLN NEB SCH ×6 (02:08→22:33)
[2022-08-22] MEDS: INSULIN LANTUS (GLARGINE) 1 /0.01ml (100units/ml) SC SCH (06:22)
[2022-08-22 09:10] LABS: Hematocrit 47.2 % (41.0-53.0); Hemoglobin 15.4 g/dL (13.5-17.5); Mean Corpuscular Hemoglobin 25.2 pg (28.0-32.0); Mean Corpuscular Hgb Conc. 32.6 g/dL (32.0-36.0); Mean Corpuscular Volume 77.3 fL (80.0-100.0); Red Cell Distribution Width 18.9 % (11.8-14.3); White Blood Cell 26.9 10^3/uL (4.4-10.8)
[2022-08-22 09:18] LABS: Calcium 8.9 mg/dL (8.5-10.1); Potassium 3.9 mmol/L (3.5-5.1)
[2022-08-22 09:21] LABS: BUN/Creatinine Ratio 39.5 (10.0-20.0)
[2022-08-22 09:31] LABS: Basophils % (manual) 0 (0.0-2.0); Blast Cells 0; Eosinophils % (manual) 0 (0-7); Metamyelocytes % 0; Myelocytes % 0; Promyelocytes % 0; Reactive Lymphocytes 0
[2022-08-22] MEDS ORDERED: PHENYLEPHRINE IV 250 ML IV SCH (10:00)
[2022-08-22] MEDS: ASPirin-EC 81 mg tab PO SCH (10:00)
[2022-08-22] MEDS: Pro-Stat SF 30ml Vanilla GT SCH ×2 (10:00→22:00)
[2022-08-22] MEDS: LINEZOLID 600MG/300ML 300 ML IV SCH ×2 (10:04→22:30)
[2022-08-22] MEDS: AMIODARONE 450mg/250ml AE 250 ML IV SCH (10:04)
[2022-08-22] MEDS: HEPARIN SODIUM (PORCINE) 5000 UNITS/ML 1ML VIAL SC SCH ×2 (10:10→22:00)
[2022-08-22 10:21] LABS: Band Neutrophils % (manual) 1; Lymphocytes % (manual) 5 (10.0-50.0); Monocytes % (manual) 1 (0-12)
[2022-08-22] MEDS: fentaNYL Drip 2500mCg/250mlNS 250 ML IV SCH (11:00)
[2022-08-22] MEDS: SALINE 0.65 % NASAL SPRAY 45ML BOTTLE EACHNOSTRI SCH ×3 (11:56→22:00)
[2022-08-22] MEDS: MIDAZOLAM DRIP 50 mg/50mL 50 ML IV SCH ×2 (13:56→20:30)
[2022-08-22] MEDS: NOREPINEPHRINE BITARTRATE 32 MG in SODIUM CHL 0.9% 218 ML IV SCH (14:21)
[2022-08-22] MEDS ORDERED: FUROSEMIDE INJECTION 100 MG in SODIUM CHL 0.9% 100 ML IV SCH (16:00)
[2022-08-22] MEDS: PHENYLEPHRINE INJ 80 MG in SODIUM CHL 0.9% 242 ML IV SCH (16:58)
[2022-08-23] VITALS (41 sets, daily range): BP systolic 39–122; BP diastolic 20–87
[2022-08-23] MEDS: AMIODARONE 450mg/250ml AE 250 ML IV SCH (01:44)
[2022-08-23] MEDS: FUROSEMIDE INJECTION 100 MG in SODIUM CHL 0.9% 100 ML IV SCH ×7 (01:45→15:00)
[2022-08-23] MEDS: IPRATROPIUM BROM 0.5 MG/2.5ML INH SOL NEB SCH ×3 (02:06→10:26)
[2022-08-23] MEDS: ALBUTEROL SULF 2.5 MG/0.5ML(0.5%) NEB SOLN NEB SCH ×3 (02:06→11:24)
[2022-08-23] MEDS ORDERED: PHENYLEPHRINE IV 250 ML IV ONE (02:34)
[2022-08-23] MEDS ORDERED: PHENYLEPHRINE HCL 10 MG/ML VL ONE (02:38)
[2022-08-23] MEDS: PHENYLEPHRINE INJ 80 MG in SODIUM CHL 0.9% 242 ML IV SCH (02:51)
[2022-08-23] MEDS ORDERED: VASOPRESSIN 20 UNIT/ML ONE (03:52)
[2022-08-23] MEDS: InsuLIN REG 1unit/0.01ml Soln (100units/ml) SC SCH ×4 (04:00→12:00)
[2022-08-23] MEDS: ACCU-CHEK COMFORT CURVE STRIP VI SCH ×4 (04:00→12:00)
[2022-08-23] MEDS: VASOPRESSIN 20 UNITS in SODIUM CHL 0.9% 99 ML IV SCH ×2 (04:30→14:52)
[2022-08-23] MEDS: fentaNYL Drip 2500mCg/250mlNS 250 ML IV SCH (04:56)
[2022-08-23 05:56] LABS: Hematocrit 50.5 % (41.0-53.0); Hemoglobin 16.1 g/dL (13.5-17.5); Mean Corpuscular Hemoglobin 25.7 pg (28.0-32.0); Mean Corpuscular Hgb Conc. 31.8 g/dL (32.0-36.0); Mean Corpuscular Volume 80.6 fL (80.0-100.0); Red Blood Cells 6.26 10^6/uL (4.5-5.90); Red Cell Distribution Width 19.3 % (11.8-14.3)
[2022-08-23] MEDS: MIDAZOLAM DRIP 50 mg/50mL 50 ML IV SCH (05:59)
[2022-08-23] MEDS: SALINE 0.65 % NASAL SPRAY 45ML BOTTLE EACHNOSTRI SCH ×2 (06:00→12:00)
[2022-08-23 06:19] LABS: Potassium 5.2 mmol/L (3.5-5.1)
[2022-08-23 06:20] LABS: BUN/Creatinine Ratio 29.5 (10.0-20.0)
[2022-08-23 06:21] LABS: Albumin 1.7 g/dL (3.4-5.0); Bilirubin, Total 2.5 mg/dL (0.2-1.0); Calcium 8.5 mg/dL (8.5-10.1); Total Protein 5.6 g/dL (6.4-8.2)
[2022-08-23 06:26] LABS: White Blood Cell 35.3 10^3/uL (4.4-10.8)
[2022-08-23 06:27] LABS: Basophils % (manual) 0 (0.0-2.0); Blast Cells 0; Eosinophils % (manual) 0 (0-7); Promyelocytes % 0; Reactive Lymphocytes 0
[2022-08-23] MEDS: INSULIN LANTUS (GLARGINE) 1 /0.01ml (100units/ml) SC SCH (07:00)
[2022-08-23 08:06] LABS: Lymphocytes % (manual) 3 (10.0-50.0)
[2022-08-23 08:08] LABS: Band Neutrophils % (manual) 18; Metamyelocytes % 5; Monocytes % (manual) 5 (0-12); Myelocytes % 2
[2022-08-23] MEDS: ASPirin-EC 81 mg tab PO SCH (08:10)
[2022-08-23] MEDS: Pro-Stat SF 30ml Vanilla GT SCH (08:10)
[2022-08-23] MEDS: NOREPINEPHRINE BITARTRATE 32 MG in SODIUM CHL 0.9% 218 ML IV SCH (08:11)
[2022-08-23] MEDS ORDERED: EPINEPHrine HCL 250 ML IV SCH (08:45)
[2022-08-23] MEDS ORDERED: EPINEPHrine HCL 250 ML IV ONE (09:01)
[2022-08-23] MEDS ORDERED: DEXTROSE 10% 250 ML IV ONE (09:26)
[2022-08-23] MEDS ORDERED: DEXTROSE 10% 250 ML Bag IV PRN (09:30)
[2022-08-23] MEDS: LINEZOLID 600MG/300ML 300 ML IV SCH (09:50)
[2022-08-23] MEDS: HEPARIN SODIUM (PORCINE) 5000 UNITS/ML 1ML VIAL SC SCH (09:51)
[2022-08-23] MEDS ORDERED: ALBUMIN 25% 50 ML IV SCH (11:00)
[2022-08-23] MEDS: CEFEPIME 2 GM in SODIUM CHL 0.9% 50 ML IV SCH ×3 (12:00)
[2022-08-23] MEDS ORDERED: SODIUM BICARBONATE 8.4% INJ 50ML SYRINGE IV ONE (15:07)
== END 2022-08-23 18:30 | DRG 870 ==
LOC: EDBD 15:42 → ER 15:42 → TELE 22:09 → DOU IN ICU 08-12 23:28 → ICU CENTRL 08-16 11:30 → UNDODISIN 08-21 09:40
PROVIDERS: ADMIT Nurse Practitioner Family; ATTEND Internal Medicine
PROC: 05HD33Z Insertion of Infusion Device into Right Cephalic Vein, Percutaneous Approach (ICD-10-PCS; 2022-08-12)
PROC: B54MZZA Ultrasonography of Right Upper Extremity Veins, Guidance (ICD-10-PCS; 2022-08-12)
PROC: 5A0945A Assistance with Respiratory Ventilation, 24-96 Consecutive Hours, High Flow/Velocity Cannula (ICD-10-PCS; 2022-08-12)
PROC: 5A0935A Assistance with Respiratory Ventilation, Less than 24 Consecutive Hours, High Flow/Velocity Cannula (ICD-10-PCS; 2022-08-14)
PROC: 5A09357 Assistance with Respiratory Ventilation, Less than 24 Consecutive Hours, Continuous Positive Airway Pressure (ICD-10-PCS; 2022-08-14)
PROC: 5A0935A Assistance with Respiratory Ventilation, Less than 24 Consecutive Hours, High Flow/Velocity Cannula (ICD-10-PCS; 2022-08-15)
PROC: 5A09357 Assistance with Respiratory Ventilation, Less than 24 Consecutive Hours, Continuous Positive Airway Pressure (ICD-10-PCS; 2022-08-15)
PROC: 5A1955Z Respiratory Ventilation, Greater than 96 Consecutive Hours (ICD-10-PCS; principal; 2022-08-16)
PROC: 0BH17EZ Insertion of Endotracheal Airway into Trachea, Via Natural or Artificial Opening (ICD-10-PCS; 2022-08-16)
PROC: 02HV33Z Insertion of Infusion Device into Superior Vena Cava, Percutaneous Approach (ICD-10-PCS; 2022-08-16)
PROC: 5A09357 Assistance with Respiratory Ventilation, Less than 24 Consecutive Hours, Continuous Positive Airway Pressure (ICD-10-PCS; 2022-08-16)
DX: A41.02 Sepsis due to Methicillin resistant Staphylococcus aureus (principal); I50.33 Acute on chronic diastolic (congestive) heart failure; J15.212 Pneumonia due to Methicillin resistant Staphylococcus aureus; J96.21 Acute and chronic respiratory failure with hypoxia; E43 Unspecified severe protein-calorie malnutrition; R65.21 Severe sepsis with septic shock; I13.0 Hypertensive heart and chronic kidney disease with heart failure and stage 1 through stage 4 chronic kidney disease, or unspecified chronic kidney disease; N17.9 Acute kidney failure, unspecified; J44.0 Chronic obstructive pulmonary disease with (acute) lower respiratory infection; N39.0 Urinary tract infection, site not specified; J44.1 Chronic obstructive pulmonary disease with (acute) exacerbation; Z68.42 Body mass index [BMI] 45.0-49.9, adult; E11.22 Type 2 diabetes mellitus with diabetic chronic kidney disease; E66.01 Morbid (severe) obesity due to excess calories; E78.5 Hyperlipidemia, unspecified; I27.20 Pulmonary hypertension, unspecified; I50.82 Biventricular heart failure; L89.159 Pressure ulcer of sacral region, unspecified stage; N18.30 Chronic kidney disease, stage 3 unspecified; Z20.822 Contact with and (suspected) exposure to COVID-19; I48.91 Unspecified atrial fibrillation; R00.1 Bradycardia, unspecified; R79.89 Other specified abnormal findings of blood chemistry; I35.0 Nonrheumatic aortic (valve) stenosis; Z74.01 Bed confinement status; Z71.3 Dietary counseling and surveillance; Z79.899 Other long term (current) drug therapy
CPT/HCPCS: 36415; 36600; 71045; 78582; 80048; 80053; 80061; 80202; 81001; 82306; 82805; 82962; 83036; 83605; 83735; 83880; 84100; 84443; 84484; 85007; 85025; 85027; 85379; 85610; 85730; 87040; 87070; 87077; 87081; 87186; 87205; 87426; 93005; 93306; 93925; 93970; 94002; 94003; 94640; 94660; 96365; 96366; 96367; 96372; 96375; 96376; 99291; C9113; G0378; J0171; J0696; J1815; J1956; J2250; J2543; J2704; J7060; P9047